=== PATIENT | female | born 1960 | race Caucasian/White ===

== ENCOUNTER → 2017-09-08 | Outpatient (CLI) | payer OTHER ==
[~2017-09-08] MED LIST: ATROPINE SULFATE 0.1 MG/ML 5ML SYR ONE; DOBUTamine HCL 12.5 MG/ML 20 ML VIAL ONE; METOPROLOL TARTRATE 1 MG/ML VIAL ONE
--- NOTE | 2017-09-08 16:16 | DOBUTAMINE ECHO ---
*NOTICE TO RECEIVING [employer] This information is strictly Confidential and protected under [place] law. [place] law prohibits you from making any further disclosure of this information unless further disclosure is expressly permitted by the written consent of the person to whom it pertains or is authorized by law. A general authorization for the release of medical or other information is not sufficient for this purpose. Hospital accepts no responsibility if the information is made available to any other person, INCLUDING THE PATIENT. Interpretation Summary * Name: ZURI RASHID Study Date: 09/08/2017 11:39 AM BP: 166/50 mmHg * Patient Location: [facility] HR: 72 * : 1960 (M/d/yyyy) Gender: Female Height: 63 in * Age: 56 yrs Ethnicity: [place] Weight: 112 lb * Ordering Physician: Lopez Cross * Referring Physician: Lopez Cross * Performed By: Shaista Cadena RDCS * * Reason For Study: Chest pain, hypertension * BSA: 1.5 m2 * -- Conclusions -- * Dobutamine Stress Echo: * 1. Negative Dobutamine stress echo for ischemia at 91 % MPHR. * 2. Borderline dobutamine ECG for ischemia at 91% MPHR; please see details below. * 3. Appropriate blood pressure response. * 4. No arrhythmia. * 5. No chest pain reported. * Echo: * 1. Normal left ventricular size and systolic function. EF 65-70%. No regional wall motion abnormalities. No left ventricular hypertrophy. No significant diastolic dysfunction. * 2. Mild mitral regurgitation. * 3. Normal estimated right ventricular systolic pressure; 24mmHg. Procedure Details * DOBUTAMINE ECHO, CPT#[id number] * ECHO DOPPLER, CPT #[id number] * ECHO COLOR FLOW, CPT #[id number] Left Ventricle * The left ventricle is normal in size. * There is normal left ventricular wall thickness. * Ejection Fraction = 65-70%. * Resting wall motion: Normal. Stress wall motion: Appropriate increase in Left ventricular systolic function and decrease in cavity size. No stress induced segmental wall motion abnormalities. * The left ventricular ejection fraction increases normally with stress. The left ventricular end-systolic cavity size reduces post-stress (normal response). The left ventricular wall motion with stress is normal. * No regional wall motion abnormalities noted. Right Ventricle * The right ventricle is normal in size and function. * The right ventricular systolic function is normal as assessed by tricuspid annular plane systolic excursion (TAPSE) (normal >1.5 cm). Atria * The left atrial size is normal. * Right atrial size is normal. * There is no evidence of atrial septal defect, but resolution does not allow assessment for a patent foramen ovale. Mitral Valve * The mitral valve leaflets appear normal. There is no evidence of stenosis, fluttering, or prolapse. * There is mild mitral regurgitation. Tricuspid Valve * The tricuspid valve is not well visualized, but is grossly normal. * There is no tricuspid stenosis. * There is mild tricuspid regurgitation. Aortic Valve * The aortic valve is trileaflet. * No hemodynamically significant valvular aortic stenosis. * No aortic regurgitation is present. Pulmonic Valve * The pulmonary valve is inadequately visualized, but the Doppler data is adequate for interpretation. * There is no significant pulmonary regurgitation. Great Vessels * The aortic root is normal size. * Aortic arch of normal dimension. * Normal pulmonary venous flow pattern. Pericardium * There is no pericardial effusion. Stress Parameters * NSR at 76 bpm. * Diffuse upsloping ST depression noted during dobutamine infusion 5 minutes into recovery, there was 0.5-[address] depression in leads II, III, and aVF. No arrhythmia. * The stress portion of this study was personally supervised by the undersigned interpreting physician. * Rest heart rate was '72' BPM. * Rest blood pressure was '166/50' * Maximum heart rate achieved was 148 bpm. * Maximum heart rate was 91 % of maximum age-predicted heart rate. * Maximum blood pressure was '185/38' * Maximum Dobutamine infusion rate was '50' mcg/kg/min. * A total of 0.25 mg of intravenous Atropine was used to supplement Dobutamine for heart rate response. * Dobutamine infusion was terminated due to achieving target heart rate * A total of 5 mg of IV Metoprolol was administered to reverse Dobutamine-induced tachycardia. * The patient did not exhibit any symptoms during drug infusion. MMode 2D Measurements and Calculations IVSd 0.81 cm LVIDd 3.7 cm LVIDs 2.3 cm LVPWd 0.90 cm IVS/LVPW 0.89 FS 38.3 % EDV(Teich) 59.8 ml ESV(Teich) 18.3 ml EF(Teich) 69.4 % EDV(cubed) 52.5 ml ESV(cubed) 12.3 ml EF(cubed) 76.5 % LV mass(C)d 91.9 grams LV mass(C)dI 60.8 grams/m\S\2 SV(Teich) 41.5 ml SI(Teich) 27.4 ml/m\S\2 SV(cubed) 40.1 ml SI(cubed) 26.6 ml/m\S\2 Ao root diam 2.6 cm Ao root area 5.3 cm\S\2 ACS 1.5 cm LA dimension 2.3 cm asc Aorta Diam 2.5 cm LA/Ao 0.88 LVOT diam 1.8 cm LVOT area 2.6 cm\S\2 LVAd ap4 18.8 cm\S\2 LVLd ap4 6.4 cm EDV(MOD-sp4) 45.1 ml EDV(sp4-el) 46.9 ml LVAs ap4 9.3 cm\S\2 LVLs ap4 5.4 cm ESV(MOD-sp4) 13.8 ml ESV(sp4-el) 13.6 ml EF(MOD-sp4) 69.4 % EF(sp4-el) 71.1 % LVAd ap2 20.0 cm\S\2 LVLd ap2 6.2 cm EDV(MOD-sp2) 54.3 ml EDV(sp2-el) 54.4 ml LVAs ap2 9.3 cm\S\2 LVLs ap2 4.8 cm ESV(MOD-sp2) 15.9 ml ESV(sp2-el) 15.4 ml EF(MOD-sp2) 70.7 % EF(sp2-el) 71.7 % LVLd %diff -2.60 % EDV(MOD-bp) 49.5 ml LVLs %diff -12.03 % ESV(MOD-bp) 15.7 ml EF(MOD-bp) 68.3 % SV(MOD-sp4) 31.3 ml SI(MOD-sp4) 20.7 ml/m\S\2 SV(MOD-sp2) 38.4 ml SI(MOD-sp2) 25.4 ml/m\S\2 SV(MOD-bp) 33.8 ml SI(MOD-bp) 22.4 ml/m\S\2 SV(sp4-el) 33.3 ml SI(sp4-el) 22.0 ml/m\S\2 SV(sp2-el) 39.0 ml SI(sp2-el) 25.8 ml/m\S\2 Doppler Measurements and Calculations MV E max jj 61.6 cm/sec MV A max jj 52.4 cm/sec MV E/A 1.2 MV dec time 0.21 sec Ao V2 max 122.2 cm/sec Ao max PG 6.0 mmHg Ao max PG (full) 2.4 mmHg LIANNA(V,A) 2.0 cm\S\2 LIANNA(V,D) 2.0 cm\S\2 LV V1 max PG 3.5 mmHg LV V1 max 94.1 cm/sec PA V2 max 69.8 cm/sec PA max PG 1.9 mmHg PA acc slope 392.6 cm/sec\S\2 PA acc time 0.14 sec TR max jj 226.9 cm/sec RVSP(TR) 23.6 mmHg RAP systole 3.0 mmHg PA pr(Accel) 15.6 mmHg
== END | disposition home or self-care (01) ==
LOC: C.CPL 11:15
PROVIDERS: ATTEND Internal Medicine Critical Care Medicine
DX: I10 Essential (primary) hypertension (principal); Z86.79 Personal history of other diseases of the circulatory system; E78.2 Mixed hyperlipidemia

== ENCOUNTER 2017-09-24 09:25 | Inpatient (IN) | payer OTHER ==
[2017-09-21 12:10] LABS: BASO % 0.2 %; BASO ABS # 0.02 K/uL (0-0.2); EOS % 1.6 %; EOS ABS # 0.15 K/uL (0-0.5); IG# 0.02 K/uL (0.00-0.02); LYMPH % 31.7 %; LYMPH ABS # 3.01 K/uL (1.2-3.4); MEAN CELL VOLUME 95.7 fL (80-100); MEAN CORPUSCULAR HEMOGLOBIN 31.9 pg (25-34); MEAN CORPUSCULAR HGB CONC 33.3 g/dl (32-36); MEAN PLATELET VOLUME 9.7 fL (7.4-10.4); MONO % 6.1 %; MONO ABS # 0.58 K/uL (0.11-0.59); NEUT % 60.2 %; NEUT ABS # 5.72 K/uL (1.4-6.5); PLATELET COUNT 328 K/uL (130-400); RED CELL DISTRIBUTION WIDTH CV 13.7 % (11.5-14.5); RED CELL DISTRIBUTION WIDTH SD 47.7 fL (36.4-46.3)
[2017-09-21 12:21] LABS: CREATININE 0.89 mg/dl (0.60-1.20); POTASSIUM 3.7 mmol/L (3.5-5.1)
[2017-09-24] VITALS (8 sets, daily range): BP systolic 114–152; BP diastolic 62–73; PULSE 61–70; TEMP 35.8–36.7; O2SAT 97–100; Ht 160 cm; Wt 51.4 kg
[~2017-09-24] VITALS: Ht 160 cm; Wt 51.4 kg
[~2017-09-24 09:25] MED LIST changes: +ALBINS/ INH; -ATROPINE SULFATE 0.1 MG/ML 5ML SYR ONE; -DOBUTamine HCL 12.5 MG/ML 20 ML VIAL ONE; +LACTATED RINGER'S 1000ML 1,000 ML IV SCH; -METOPROLOL TARTRATE 1 MG/ML VIAL ONE; +SPRIN/30 INH; +VNTHFA/IN INH
[2017-09-24] MEDS ORDERED: BUPIVACAINE LIPOSOME 1/3% 266 MG/20 ML VIAL INFIL ONE (11:37)
[2017-09-24] MEDS ORDERED: BUPIVACAINE 0.5 % 5 MG/1 ML MPF 30ML VIAL ONE (11:38)
[2017-09-24] MEDS ORDERED: SODIUM CHLORIDE 0.9% PF 50 ML VIAL ONE (11:38)
--- NOTE | 2017-09-24 11:41 | History & Physical Bridge Note ---
H&P Re-Evaluation Bridge Note: I have examined the patient, reviewed the History & Physical and in the interval since the performance of the History & Physical I have noted the following changes of clinical significance: No changes noted
[2017-09-24] MEDS ORDERED: MIDAZOLAM HCL 1 MG/ML 2ML VIAL ONE (11:47)
[2017-09-24] MEDS ORDERED: FENTANYL CITRATE INJ 50 MCG/1 ML 2 ML VIAL ONE (11:47)
[2017-09-24] MEDS ORDERED: KETOROLAC TROMETHAMINE 30 MG/ML VIAL IV. PRN (12:00)
[2017-09-24] MEDS ORDERED: HYDROmorphone INJ 2 MG/ML SYR/VIAL IV PRN (12:00)
[2017-09-24] MEDS ORDERED: ATROPINE SULFATE 0.1 MG/ML 5ML SYR IV PRN (12:00)
[2017-09-24] MEDS ORDERED: ONDANSETRON INJ 2 MG/ML 2 ML VIAL IV PRN ×2 (12:00→13:30)
[2017-09-24] MEDS ORDERED: PROPOFOL IV EMULSION 10 MG/ML 20 ML VIAL IV ONE (13:11)
[2017-09-24] MEDS ORDERED: NEOSTIGMINE METHYLSULFATE 5 MG/5 ML SYR ONE (13:11)
[2017-09-24] MEDS ORDERED: LARYING-O-JET KIT (LTA) ONE (13:11)
[2017-09-24] MEDS ORDERED: LIDOCAINE HCL 2% 2 ML VIAL (20MG/ML) ONE (13:11)
[2017-09-24] MEDS ORDERED: GLYCOPYRROLATE INJ 0.2 MG/ML VIAL ONE (13:11)
[2017-09-24] MEDS ORDERED: ONDANSETRON INJ 2 MG/ML 2 ML VIAL ONE (13:11)
[2017-09-24] MEDS ORDERED: ROCURONIUM BROMIDE 10 MG/ML 5 ML VIAL IV ONE (13:11)
[2017-09-24] MEDS ORDERED: CEFAZOLIN SOD 1 GM VIAL ONE (13:12)
[2017-09-24] MEDS ORDERED: EpHEDrine SULFATE 50MG/5ML SYR ONE (13:12)
--- NOTE | 2017-09-24 13:20 | [facility] Post Operative Brief Note ---
Immediate Operative Summary Operative Date Sep 24, 2017. Pre-Operative Diagnosis Multiple bilateral pulmonary nodules Post-Operative Diagnosis same as preop Procedure(s) Performed Right Video Assisted Thoracoscopy with Lung Biopsies Surgeon Dr. Osman Postdoctoral Fellow Surgeon(s) Spencer Mckenzie PA-c Estimated Blood Loss 10 cc Findings Consistent with Post-Op Diagnosis Specimens FS #1: right upper lobe apex - to lab at 1241 FS #2: right lower lobe - to lab at 1258 Anesthesia Type General
[2017-09-24] MEDS ORDERED: MoRPHine SULFATE 2 MG/ML CARP IV PRN (13:30)
[2017-09-24] MEDS ORDERED: ALBUTEROL 0.083% NEBU SOLN 3 ML VIAL INH PRN (13:30)
[2017-09-24] MEDS ORDERED: ALBUTEROL HFA 8 GM INHALER INH PRN (13:30)
--- NOTE | 2017-09-24 14:08 | DIAGNOSTIC IMAGING REPORT ---
CHEST ONE VIEW PORTABLE CLINICAL HISTORY: wedge resection COMPARISON STUDY: Outside CT scan performed April 2017 FINDINGS: The heart is normal in size. There is a right-sided chest tube. There is a right apical suture line. There is a right apical pneumothorax with a pleural separation of 25 mm. A surgical clip projects over the right medial clavicle. There is diffuse reticular reticulonodular shadowing. There are no pleural effusions. There is no lobar consolidation. There is subcutaneous emphysema on the right.[ IMPRESSION: 1. Postsurgical changes on the right. 25 mm right apical pneumothorax. 2. Diffuse bilateral reticulonodular shadowing, a finding likely corresponding to the multiple bilateral pulmonary nodules visualized the outside CT scan. Electronically signed by: Jasbir Amos M.D. 09/24/2017 2:06 PM Dictated Date/Time: 09/24/2017 2:04 PM
--- NOTE | 2017-09-24 14:46 | Anesthesiology Progress Note ---
Anesthesia Post Op Note Date & Time Sep 24, 2017 at 14:46 Vital Signs Pain Intensity: 2 Vital Signs Past 12 Hours Date Time Temp Pulse Resp B/P (MAP) Pulse Ox O2 Delivery O2 Flow Rate FiO2 09/24/17 14:30 58 17 154/65 99 Nasal Cannula 2 09/24/17 14:15 61 19 151/69 99 Nasal Cannula 2 09/24/17 14:05 36.5 64 18 134/64 99 Nasal Cannula 2 09/24/17 13:55 64 22 146/75 100 Oxymask 6 09/24/17 13:45 76 18 134/65 100 Oxymask 8 09/24/17 13:37 36.2 89 16 156/69 100 Oxymask 10 09/24/17 09:52 36.7 68 20 132/67 98 Room Air Notes Mental Status: alert / awake / arousable, participated in evaluation Pt Amnestic to Procedure: Yes Nausea / Vomiting: adequately controlled Pain: adequately controlled Airway Patency, RR, SpO2: stable & adequate BP & HR: stable & adequate Hydration State: stable & adequate Anesthetic Complications: no major complications apparent
[2017-09-24] MEDS: OXYCODONE HCL IR 5 MG TAB (IMMEDIATE RELEASE) PO PRN (15:56)
[2017-09-24] MEDS: METOCLOPRAMIDE HCL INJ 5 MG/ML 2 ML VIAL IV. SCH ×2 (15:58→21:26)
[2017-09-24] MEDS: KETOROLAC TROMETHAMINE 15 MG/ML VIAL IV. SCH (15:59)
[2017-09-24] MEDS: ACETAMINOPHEN IV 1,000 MG in EMPTY BAG 0 ML IV SCH (15:59)
--- NOTE | 2017-09-24 18:09 | OPERATIVE REPORT ---
DATE OF OPERATION: 09/24/2017 PREOPERATIVE DIAGNOSIS: Multiple pulmonary nodules. POSTOPERATIVE DIAGNOSIS: Same. PROCEDURE: Right thoracoscopy with wedge resection of right upper lobe and right lower lobe biopsies. SURGEON: Jef Osman MD. CONTRACT NEGOTIATION SPECIALIST: CHRISTELLE Ruiz, (MrJonny Mckenzie was present for the whole case and was the first assist, managed the camera. He also closed the skin incisions at the conclusion of the case). ANESTHESIA: General anesthesia with single lumen intubation. SPECIFICS OF PROCEDURE. This is a 56-year-old female who is an active smoker and has been smoking her entirely life. She is found to have multiple pulmonary nodules bilateral, a bit more so on the right than the left. She was sent to me for considerations for diagnostic biopsy. I felt that a wedge resection is going to be required. We elected to proceed with a thoracoscopic biopsy and on 09/24/2017, we brought the patient to operating room and did an uncomplicated wedge resection of right upper lobe and right lower lobe. The patient had a small adhesion close to her subclavian artery on the right side and when reinsufflated CO2 in the lung, this apparently evolved and there was a bleeding run off the subclavian artery. Care was taken to identify the phrenic nerve and just anterior to this was a small vessel and I clipped this twice with a Hemoclip and that stopped the bleeding. We did an Exparel block. She tolerated it well. DESCRIPTION OF PROCEDURE: The patient was brought to the operating room, laid in supine position. General anesthesia was induced and endotracheal intubation was performed with a single lumen tube. The patient was turned in the left lateral decubitus position, her right chest prepped and draped in usual sterile fashion. A 5 mm scope was placed about the fifth interspace anteriorly. This was anterior to latissimus dorsi muscle. Another 5 mm port was placed bit posteriorly, one interspace below the scapular tip. We then placed a 12 mm port in about the eighth interspace closer to the mid axillary line. There were really no adhesions except for the upper lobe. We insufflated CO2 and noted blood coming from the area of the subclavian upon evaluating there was a small branch that had been involved. I clipped this twice with a Hemoclip. I suctioned out the blood. I then grasped the apex of the right upper lobe and using Endo-PARKER stapler fired across several times to remove the bullae as well as appeared to be nodules. Frozen section of this was performed while I was doing a biopsy of the medial aspect of the lower lobe. This was a definite nodule. Dr. Randle saw bullae but did not really see any nodules in the upper lobe segment; however, in the lower lobe there was an inflammatory nodule which was definite. We have sent this for AFB and fungal smears. We then placed 266 mg of Exparel and mixed it with 30 mL of 0.5% bupivacaine and then 100 mL of normal saline injected from the 2nd to 11th rib for an intercostal block. I also injected in all the incisions. After I reviewed the slides with Dr. Randle and we felt that we had business office representative sample of the nodule, we closed by placing a chest tube in the mid axillary line lower thoracostomy port and directed towards the apex. A 4-0 Monocryl was used in running continuous fashion to close the two 5 mm ports and then 0 silk was used to hold the tube in place and sutured to the skin. We had no air leak. Monocryl was also used to close the skin incision around the chest tube. She tolerated it quite well and was extubated in the room. She was to be watched in the regular floor. I attest to the content of the Intraoperative Record and any orders documented therein. Any exception s are noted below.
[2017-09-24] MEDS: DOCUSATE SODIUM 100 MG CAP PO SCH (21:26)
[2017-09-24] MEDS: D5W AND 1/2NSS 1,000 ML IV SCH ×2 (21:44→23:20)
[2017-09-25] VITALS (7 sets, daily range): BP systolic 130–178; BP diastolic 74–83; PULSE 51–61; TEMP 36.3–36.7; O2SAT 93–100
[2017-09-25] MEDS: KETOROLAC TROMETHAMINE 15 MG/ML VIAL IV. SCH ×3 (00:30→15:50)
[2017-09-25] MEDS: ACETAMINOPHEN IV 1,000 MG in EMPTY BAG 0 ML IV SCH ×3 (00:31→16:04)
[2017-09-25] MEDS: METOCLOPRAMIDE HCL INJ 5 MG/ML 2 ML VIAL IV. SCH ×2 (05:37→13:29)
--- NOTE | 2017-09-25 07:16 | DIAGNOSTIC IMAGING REPORT ---
CHEST ONE VIEW PORTABLE CLINICAL HISTORY: 56 years-old Female presenting with wedge resection . TECHNIQUE: Portable upright AP view of the chest was obtained. COMPARISON: 09/24/2017. FINDINGS: Large bore right pleural drain positioned towards the right apex. A surgical clip projects over the right apex. A suture margin is evident at the right apex. Atherosclerosis of the aortic arch. Cardiac silhouette normal in size. Prominence of pulmonary vasculature. Prominent and heterogeneous lung markings. No focal opacity. Persistent right apical pneumothorax with a pleural separation measuring 3.7 cm, stable to slightly increased from prior when remeasured at a comparable level. Osseous structures normal. Subcutaneous emphysema along the right lateral chest wall related to the drain. IMPRESSION: 1. Stable to slightly increased right apical pneumothorax with postsurgical changes of the right apex. 2. Large bore right pleural drain remains in place. Electronically signed by: Marques Gallagher M.D. 09/25/2017 7:14 AM Dictated Date/Time: 09/25/2017 7:13 AM
[2017-09-25 07:29] LABS: PTT PATIENT 28.9 SECONDS (21.0-31.0)
[2017-09-25 07:49] LABS: CREATININE 0.71 mg/dl (0.60-1.20)
[2017-09-25 07:50] LABS: HEMATOCRIT 36.4 % (37-47); MEAN CELL VOLUME 95.5 fL (80-100); MEAN CORPUSCULAR HEMOGLOBIN 31.5 pg (25-34); MEAN PLATELET VOLUME 9.5 fL (7.4-10.4); PLATELET COUNT 288 K/uL (130-400); RED CELL DISTRIBUTION WIDTH CV 13.9 % (11.5-14.5); RED CELL DISTRIBUTION WIDTH SD 48.3 fL (36.4-46.3); WHITE BLOOD COUNT 7.74 K/uL (4.8-10.8)
[2017-09-25] MEDS: TIOTROPIUM BROMIDE 5 PUFF/90 MCG INH INH SCH (08:26)
[2017-09-25] MEDS: DOCUSATE SODIUM 100 MG CAP PO SCH ×2 (08:26→21:39)
[2017-09-25] MEDS: D5W AND 1/2NSS 1,000 ML IV SCH ×2 (08:37→18:50)
--- NOTE | 2017-09-25 12:26 | SURGERY PROGRESS NOTE ---
DATE: 09/25/2017 SUBJECTIVE: Ms. Arellano underwent a wedge resection biopsy yesterday via right thoracoscopy. She has a bit larger pneumothorax than I thought she have, although we did do an apical resection. Her x-ray otherwise looks good with no basilar component and no infiltrates or pleural effusions. I will watch her for 1 more day. Her pain control was very good. She is ambulating in the hallway. She is tolerating a house diet. Overall, I am quite happy with her. We will check a chest x-ray in the morning. If that looks good, then we will let her go home. LUC
[2017-09-25] MEDS: ENOXAPARIN 40 MG/0.4 ML SYR SQ SCH (13:28)
[2017-09-25] MEDS: OXYCODONE HCL IR 5 MG TAB (IMMEDIATE RELEASE) PO PRN (19:00)
[2017-09-26] MEDS: KETOROLAC TROMETHAMINE 15 MG/ML VIAL IV. SCH ×2 (00:03→08:31)
[2017-09-26] MEDS: ACETAMINOPHEN IV 1,000 MG in EMPTY BAG 0 ML IV SCH ×2 (00:04→08:31)
[2017-09-26 03:58] VITALS: BP 192/83; PULSE 68; TEMP 36.5; O2SAT 98
[2017-09-26] MEDS: OXYCODONE HCL IR 5 MG TAB (IMMEDIATE RELEASE) PO PRN (04:03)
[2017-09-26] MEDS: D5W AND 1/2NSS 1,000 ML IV SCH (05:02)
[2017-09-26 05:07] VITALS: BP 176/83
--- NOTE | 2017-09-26 07:32 | DIAGNOSTIC IMAGING REPORT ---
CHEST ONE VIEW PORTABLE CLINICAL HISTORY: pneumothorax tube position COMPARISON STUDY: 09/25/2017 FINDINGS: Improved right apical pneumothorax. Maximum pleural separation currently is 2.5 cm. Right-sided chest tube is unchanged in position. The lungs remain generally clear. Minimal atelectasis left base unchanged. IMPRESSION: Improved right apical pneumothorax with a maximum current pleural separation of 2.5 cm. The above report was generated using voice recognition software. It may contain grammatical, syntax or spelling errors. Electronically signed by: Kavon Tamayo M.D. 09/26/2017 7:30 AM Dictated Date/Time: 09/26/2017 7:29 AM
[2017-09-26 08:00] VITALS: BP 176/83; PULSE 68; TEMP 36.5; O2SAT 98
[2017-09-26 08:02] VITALS: BP 183/82; PULSE 69; TEMP 36.8; O2SAT 96
[2017-09-26] MEDS: TIOTROPIUM BROMIDE 5 PUFF/90 MCG INH INH SCH (08:31)
[2017-09-26] MEDS: ENOXAPARIN 40 MG/0.4 ML SYR SQ SCH (08:32)
[2017-09-26] MEDS: DOCUSATE SODIUM 100 MG CAP PO SCH (08:56)
--- NOTE | 2017-09-26 09:31 | Discharge Instructions ---
Discharge Instructions Date of Service Sep 26, 2017. Admission Reason for Admission: Multiple Lung Nodules Shown On Ct Discharge Discharge Diagnosis / Problem: Same Discharge Goals Goal(s): Learn about illness (Await pathology.) Activity Recommendations Activity Limitations: as noted below Lifting Limitations: gradually increase as tolerated Exercise/Sports Limitations: gradually increase as tolerated May Resume Sexual Activity: when tolerated Shower/Bathe: may shower/bathe in 3 days Driving or Machine Use: resume 3 days after discharge . Instructions / Follow-Up Instructions / Follow-Up Remove dressing on 09-29-17 and shower. My office will call you to set up appointment for next week with a chest xray. Current Hospital Diet Patient's current hospital diet: Regular Diet Discharge Diet Recommended Diet: Regular Diet Procedures Procedures Performed: Right Video Assisted Thoracoscopy with Lung Biopsies Pending Studies Studies pending at discharge: yes List of pending studies: Pathology Medical Emergencies . Who to Call and When: Medical Emergencies: If at any time you feel your situation is an emergency, please call 911 immediately. . Non-Emergent Contact Non-Emergency issues call your: Primary Care Provider Call Non-Emergent contact if: temperature is above 101.5, wound has increased drainage, wound has increased redness . "Provider Documentation" section prepared by Jef Osman. . VTE Core Measure Inpt VTE Proph given/why not?: Enoxaparin (Lovenox)SQ, SCD's
--- NOTE | 2017-09-26 09:41 | DIAGNOSTIC IMAGING REPORT ---
CHEST ONE VIEW PORTABLE CLINICAL HISTORY: chest tube removal pneumothorax COMPARISON STUDY: 09/26/2017 6:57 AM FINDINGS: Interval removal of the right-sided chest tube. Small residual right apical pneumothorax unchanged in the prior exam. Lungs otherwise are clear. Mild chronic interstitial prominence is noted. IMPRESSION: Interval removal of the right-sided chest tube. Small right apical pneumothorax unchanged from the prior study. The above report was generated using voice recognition software. It may contain grammatical, syntax or spelling errors. Electronically signed by: Kavon Tamayo M.D. 09/26/2017 9:40 AM Dictated Date/Time: 09/26/2017 9:37 AM
--- NOTE | 2017-09-26 14:57 | DISCHARGE SUMMARY ---
DISCHARGE DIAGNOSIS: Apparent inflammatory nodules, bilaterally. HOSPITAL COURSE: Sumaya Arellano is a 56-year-old with a long history of cigarette smoking who was found to have multiple bilateral pulmonary nodules. They were all fairly small, though none of them over a centimeter. After a long talk, we elected to proceed with a thoracoscopic biopsy. On 09/24/2017, the patient underwent uncomplicated right thoracoscopy with a wedge resection and biopsy. She was also found to have bullae and I removed the apical bulla as a lower lobe mass. Frozen section was reviewed with Dr. Randle at the time of surgery and it appears to be an inflammatory mass. The fungal and AFB stains were negative thus far. The patient tolerated it well and she had a small apical pneumothorax and I kept her chest tube in for an extra day. This was pulled up today on 09/26/2017. Her post tube removal chest x-ray, I felt looked very good. We will see her back in the office next week to go over her final pathology. She really was not having pain and her incisions were clean. She was told to take [id number] pain medications. Discharge instructions were given. I will see her back in the office next week. LUC
--- NOTE | 2017-09-28 11:21 | EDITING REQUIRED CODING QUERY ---
CODING QUERY To promote full compliance with coding requirements relating to patient care, provider participation is requested in all cases of airport maintenance laborer uncertainty. Please assist us with the question(s) below: Coding Question(s): Please clarify below, in your clinical opinion, regarding the apical pneumothorax. ( ) Apical Pneumothorax was a postoperative complication ( X ) Apical Pneumothorax was Not a postoperative complication Physician's Response(s): Thank you Rossy Ortega Principal Diagnosis: "_that condition established after study, to be chiefly responsible for occasioning the admission of the patient to the hospital for care." Co-Existing Principal Diagnosis: "_when two or more diagnoses equally meet the criteria for principal diagnosis as determined by the circumstances of admission, diagnostic work up, and/or therapy provided, and the Alphabetic Index, Tabular List, or another coding guideline does not provide sequencing direction, any one of the diagnoses may be sequenced first." "When the physician has documented what appears to be a current diagnosis in the body of the record, but has not included the diagnosis in the final diagnostic statement, the physician should be asked whether the diagnosis should be added." (Source Coding [facility] 2 QTR90. p3-4)
== END 2017-09-26 11:02 | disposition home or self-care (01) | DRG 167 ==
LOC: C.ACU 09:25 → C.MSN 13:24 → ENRESERV 14:22
PROVIDERS: ADMIT Surgery; ATTEND Surgery
PROC: 0W9930Z Drainage of Right Pleural Cavity with Drainage Device, Percutaneous Approach (ICD-10-PCS; principal; 2017-09-24 11:30)
PROC: 0BBC4ZX Excision of Right Upper Lung Lobe, Percutaneous Endoscopic Approach, Diagnostic (ICD-10-PCS; principal; 2017-09-24 11:30)
PROC: 0BBF4ZX Excision of Right Lower Lung Lobe, Percutaneous Endoscopic Approach, Diagnostic (ICD-10-PCS; principal; 2017-09-24 11:30)
PROC: 0W3C4ZZ Control Bleeding in Mediastinum, Percutaneous Endoscopic Approach (ICD-10-PCS; principal; 2017-09-24 11:30)
DX: R91.8 Other nonspecific abnormal finding of lung field (principal); J93.9 Pneumothorax, unspecified; J43.9 Emphysema, unspecified; F17.210 Nicotine dependence, cigarettes, uncomplicated; J44.9 Chronic obstructive pulmonary disease, unspecified; I10 Essential (primary) hypertension; Z87.01 Personal history of pneumonia (recurrent); Z82.49 Family history of ischemic heart disease and other diseases of the circulatory system; Z83.3 Family history of diabetes mellitus; Z81.8 Family history of other mental and behavioral disorders

== ENCOUNTER → 2017-10-05 | Outpatient (CLI) | payer OTHER ==
[~2017-10-05] MED LIST changes: -LACTATED RINGER'S 1000ML 1,000 ML IV SCH
--- NOTE | 2017-10-05 09:59 | DIAGNOSTIC IMAGING REPORT ---
CHEST 2 VIEWS ROUTINE CLINICAL HISTORY: Multiple lung nodules. COMPARISON STUDY: Chest CT April 28, 2017 and chest radiograph September 26, 2017. FINDINGS: A small right pneumothorax has decreased in size since exam of September 26, 2017. Superior pleural separation measures 1 cm. Postoperative findings within the right lung apex are noted. Innumerable pulmonary nodules are again noted. Cardiac size is normal. Mediastinal contours are normal. There is no evidence for pulmonary edema. There is no pleural effusion. IMPRESSION: 1. Interval decrease in size of a small right apical pneumothorax. 2. Redemonstration of pulmonary nodules. Electronically signed by: Gage Lal M.D. 10/05/2017 9:57 AM Dictated Date/Time: 10/05/2017 9:55 AM
== END | disposition home or self-care (01) ==
LOC: C.RAD1850 09:45
PROVIDERS: ATTEND Surgery
DX: R91.8 Other nonspecific abnormal finding of lung field (principal); Z98.890 Other specified postprocedural states; J93.9 Pneumothorax, unspecified

== ENCOUNTER → 2017-12-15 | Outpatient (CLI) | payer OTHER ==
--- NOTE | 2017-12-15 14:47 | DIAGNOSTIC IMAGING REPORT ---
PET/CT SKULL-THIGH CLINICAL HISTORY: 57 years-old Female presenting with PULMONARY NODULE. TECHNIQUE: PET/CT was performed from the skull base through the proximal thighs following the intravenous administration of 12.772 mCi of F18-FDG. Blood glucose level 90 mg/dL. The injection was performed at 8:20 AM and imaging began at 9:[address] was performed for attenuation correction purposes and anatomic localization. COMPARISON: Chest CT from 04/28/2017. CT DOSE (mGy.cm): The estimated cumulative dose is 1156.30. FINDINGS: Head and neck: No FDG-avid mass in the visualized portion of the head or neck. No FDG avid or enlarged lymph nodes in the neck. Chest: Normal thyroid and thoracic inlet. No FDG avid axillary, supraclavicular, or mediastinal lymphadenopathy. Evaluation of the gato on anatomic imaging limited without intravenous contrast. Atherosclerosis of the aorta. Normal heart size. Coronary artery and aortic valve calcification. No pericardial or pleural effusion. Multifocal solid and cavitary nodules throughout all 5 lobes. There may be minimal sparing of the lung bases. Suture margin noted at the right apex from recent wedge resection. Many of these nodules demonstrate FDG avidity (for example max SUV 1.82 versus uninvolved lung parenchyma max SUV 0.55). Background emphysematous changes evident. Abdomen and pelvis: Normal physiologic distribution of radiotracer in the gastrointestinal and genitourinary tracts. No FDG avid lymphadenopathy or mass lesion. Diverticulosis of the sigmoid colon with wall thickening likely indicating chronic diverticular disease. No pericolonic fat infiltration to suggest acute diverticulitis. Atherosclerosis of the normal caliber abdominal aorta. Musculoskeletal: No FDG-avid or destructive osseous lesion. IMPRESSION: 1. Multifocal mildly FDG avid pulmonary nodules, some of which demonstrate cavitary change. The exuberant number and distribution of nodules is somewhat atypical for pulmonary Langerhans cell histiocytosis though the findings could still be compatible with this diagnosis. No evidence of malignancy in the imaged body. 2. Postsurgical changes of the right apex. 3. Emphysema and smoking related lung injury. Electronically signed by: Marques Gallagher M.D. 12/15/2017 2:45 PM Dictated Date/Time: 12/15/2017 12:14 PM
== END | disposition home or self-care (01) ==
LOC: C.PET 08:09
PROVIDERS: ATTEND Internal Medicine Critical Care Medicine
DX: R91.1 Solitary pulmonary nodule (principal)

== ENCOUNTER → 2018-04-08 | Outpatient (CLI) | payer OTHER | END | disposition home or self-care (01) | LOC: C.PATHSPEC 11:53 | PROVIDERS: ATTEND Internal Medicine Critical Care Medicine | DX: J98.4 Other disorders of lung (principal) ==

== ENCOUNTER 2025-03-15 10:48 | Inpatient (IN) ==
--- NOTE | 2025-03-15 11:39 | XRay Report ---
XR chest 1V portable CLINICAL HISTORY: hypotension COMPARISON STUDY: 05/14/2020 FINDINGS: Heart size and pulmonary vasculature are normal. No consolidation or pleural effusion. No p neumothorax. IMPRESSION: No acute findings. ACT 112: Negative or not required by law. Electronically signed by: Ricco Pierson M.D. 03/15/2025 11:38 AM
[2025-03-15 12:00] LABS: Hematocrit (blood only) 34.7 % (37.0-47.0); Hemoglobin 11.9 g/dl (12.0-16.0); Immature Granulocytes # (auto) 0.09 K/uL (0.01-0.20); Immature Granulocytes % (auto) 0.6 %; Mean Corpuscular Hemoglobin 33.6 pg (25.0-34.0); Mean Corpuscular Volume 98.0 fL (80.0-100.0); Platelet Count 432 K/uL (130-400); RDW Standard Deviation 53.3 fL (36.4-46.3); Red Blood Count 3.54 M/uL (4.20-5.40); White Blood Count 15.91 K/ul (4.8-10.8)
[2025-03-15] MEDS: SODIUM CHLORIDE 0.9% 1,000 ML IV ONE (12:00)
[2025-03-15 12:17] LABS: Base Excess VBG -0.3 mEq/L; HCO3 VBG 26 mmol/L; Oxygen Saturation VBG < 60.0 %; PCO2 VBG 49 mmHg (38-50); PO2 VBG < 20 mmHg; pH VBG 7.33 (7.36-7.41)
--- NOTE | 2025-03-15 12:20 | Emergency Department Note ---
Impression & Plan Dehydration, SIVAKUMAR (acute kidney injury) ED Provider Note NAME: ZURI RASHID AGE: 64 SEX: F : 1960 ARRIVES VIA: Walk-In INFORMANT: Patient, ED PROVIDER(S): Ciro Bennett MD CHIEF COMPLAINT: Concern for dehydration HPI: This is a 64-year-old female sent for concern of dehydration. Patient had a stroke previously and has had decline in health progressively. Family states that she has stopped eating and drinking normally. They are concerned about sores on her foot and sacrum. Family notes patient appears dehydrated with dry mouth. Urinate only once or twice a day. She has not had any recent falls. She is essentially bedbound. She has had no fevers, chills, nausea or vomiting. No diarrhea. Family concerned about patient's status at home and requesting help with care. ROS: See above HPI for pertinent positives & negatives. A total of 10 systems reviewed and were otherwise negative. PAST MEDICAL HISTORY: See Below PAST SURGICAL HISTORY: See Below FAMILY HISTORY: See Below SOCIAL HISTORY: See Below HOME MEDICATIONS: See Below ALLERGIES: See Below VITALS: See Below PHYSICAL EXAMINATION: General: Thin, frail Head: Normocephalic and atraumatic Eyes: Normal inspection, extraocular muscles intact Ear, nose, throat: Normal external exam Neck: Normal range of motion Respiratory: lungs clear to auscultation bilaterally Cardiovascular: Regular rate/rhythm, no murmur GI: soft, nontender, no guarding or rebound Extremities: nontender, moves all extremities Neuro: Awake, follows commands, chronic right sided weakness Skin: Warm, dry, and intact MEDICAL DECISION MAKING: This is a 64-year-old female presenting for dehydration. Patient suffered a stroke previously in July with right-sided deficits. Since then has had slow decline. - Patient initially hypotensive into the 60s over 40s - Patient had on fluids and improvement to 100s over 60s after half a liter - Blood work is reviewed showing leukocytosis to 15.91, hemoglobin 11.9. VBG 7.33/49. Signs of dehydration with minimal hyponatremia, hypochloremia. Creatinine elevated at 1.68. Troponin stable at 23 - Based on patient's clinical history and lab work, will admit for dehydration, failure to thrive in need of placement/SNF Differential diagnosis: Failure to thrive, dehydration, sepsis, UTI Independent History obtained from: [id number], son, Diagnostics interpreted by me: ECG: ECG independently interpreted by me with normal sinus rhythm, rate of 96, normal OR, normal QRS, normal QTc, no ST segment elevations consistent with STEMI criteria, significant artifact Cardiac Monitoring: An order was placed for continuous cardiac monitoring. The monitor shows a rate of 96 with sinus rhythm. 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 (Acute) COPD, mild (Acute) Current tobacco use (Acute) Depressive disorder (Acute) Dyspnea on exertion (Acute) Essential hypertension (Acute) History of unstable angina (Acute) Lung nodule (Acute) Mixed hyperlipidemia (Acute) Multiple lung nodules on CT (Acute) Tobacco use disorder Chronic obstructive pulmonary disease Adult PLCH (pulmonary Langerhans cell histiocytosis) Lung nodules Social History Smoking Status: Current every day smoker Tobacco Type: Cigarettes Age Started Using Tobacco: 12; packs per day: 1; Cigarettes Per Day: 20; Second Hand Exposure: Yes; Feels Safe at Home: Yes Allergies Allergies Allergy/AdvReac Type Severity Reaction Status Date / Time No Known Allergies Allergy Unverified 03/30/24 14:36 Home Meds Home Medications Medication Instructions Recorded Confirmed atorvastatin 20 mg tablet 80 mg PO DAILY 11/16/22 03/15/25 lorazepam 1 mg tablet 1 mg PO BID PRN Other 03/30/24 03/15/25 aspirin 81 mg tablet,delayed 81 mg PO DAILY 03/15/25 03/15/25 release chlorthalidone 25 mg tablet 12.5 mg PO DAILY 03/15/25 03/15/25 ezetimibe 10 mg tablet 10 mg PO DAILY 03/15/25 03/15/25 furosemide 20 mg tablet 20 mg PO DAILY PRN Fluid Retention 03/15/25 03/15/25 lisinopril 20 mg tablet 20 mg PO DAILY 03/15/25 03/15/25 multivitamin 1 tab PO DAILY 03/15/25 03/15/25 oxycodone-acetaminophen 7.5 mg-325 1 tab PO Q8H 03/15/25 03/15/25 mg tablet sertraline 25 mg tablet 25 mg PO DAILY 03/15/25 03/15/25 silver sulfadiazine 1 % topical 1 applic topical BID PRN Other 03/15/25 03/15/25 cream umeclidinium 62.5 mcg/actuation 1 inh inhalation DAILY PRN Other 03/15/25 03/15/25 blister powder for inhalation (Incruse Ellipta) Previous Rx's Medication Instructions Recorded albuterol sulfate 90 mcg/actuation 2 puff inhalation QID PRN 07/04/21 aerosol inhaler shortness of breath or wheezing #18 grams Results & Data (ED) Vital Signs Vital Signs - 24 hr 03/15/25 11:16 03/15/25 11:24 03/15/25 11:36 Temperature 36.8 C Temperature Source Oral Pulse Rate 93 H 89 Pulse Rate [Apical] 91 H Pulse Rate from SpO2 Sensor 90 Respiratory Rate 24 16 16 Respiratory Effort / Characteristics Non-Labored Spontaneous Non-Labored Spontaneous Respiratory Depth Normal Normal Blood Pressure 64/45 L 81/45 L Blood Pressure [Left Arm] 103/65 Blood Pressure Mean 51 57 Blood Pressure Mean [Left Arm] 77 Pulse Oximetry 91 91 89 L Oxygen Delivery Method Room Air Room Air Oxygen Flow Rate Sepsis Recent Fever Within 48 Hours No Sepsis New/Unexplained Change in Mental Status No Sepsis Action Taken by Nursing Physician Notified Oxygen Flow Rate - Titration Pulse Oximetry Post Tiitration 03/15/25 11:39 03/15/25 11:39 03/15/25 11:45 Temperature Temperature Source Pulse Rate 83 Pulse Rate [Apical] Pulse Rate from SpO2 Sensor 82 Respiratory Rate 16 Respiratory Effort / Characteristics Respiratory Depth Blood Pressure 85/62 L 85/62 L Blood Pressure [Left Arm] Blood Pressure Mean 69 63 Blood Pressure Mean [Left Arm] Pulse Oximetry 88 L 93 Oxygen Delivery Method Room Air Nasal Cannula Nasal Cannula Oxygen Flow Rate 2 2 Sepsis Recent Fever Within 48 Hours Sepsis New/Unexplained Change in Mental Status Sepsis Action Taken by Nursing Oxygen Flow Rate - Titration 2 Pulse Oximetry Post Tiitration 94 03/15/25 11:46 03/15/25 11:54 03/15/25 12:03 Temperature Temperature Source Pulse Rate 96 H 82 86 Pulse Rate [Apical] Pulse Rate from SpO2 Sensor 83 Respiratory Rate 13 15 Respiratory Effort / Characteristics Respiratory Depth Blood Pressure 108/57 L 126/76 Blood Pressure [Left Arm] Blood Pressure Mean 74 92 Blood Pressure Mean [Left Arm] Pulse Oximetry 95 Oxygen Delivery Method Nasal Cannula Nasal Cannula Oxygen Flow Rate 2 2 Sepsis Recent Fever Within 48 Hours Sepsis New/Unexplained Change in Mental Status Sepsis Action Taken by Nursing Oxygen Flow Rate - Titration Pulse Oximetry Post Tiitration 03/15/25 12:30 Temperature Temperature Source Pulse Rate 96 H Pulse Rate [Apical] Pulse Rate from SpO2 Sensor 85 Respiratory Rate 15 Respiratory Effort / Characteristics Respiratory Depth Blood Pressure 109/41 L Blood Pressure [Left Arm] Blood Pressure Mean 63 Blood Pressure Mean [Left Arm] Pulse Oximetry 99 Oxygen Delivery Method Nasal Cannula Oxygen Flow Rate 2 Sepsis Recent Fever Within 48 Hours Sepsis New/Unexplained Change in Mental Status Sepsis Action Taken by Nursing Oxygen Flow Rate - Titration Pulse Oximetry Post Tiitration Laboratory Data 03/15/25 11:38 03/15/25 11:38 Lab Results 03/15/25 03/15/25 03/15/25 Range/Units 11:38 11:48 14:27 WBC 15.91 H (4.8-10.8) K/ul RBC 3.54 L (4.20-5.40) M/uL Hgb 11.9 L (12.0-16.0) g/dl POC Hgb 12.6 (12.0-16.0) g/dl Hct 34.7 L (37.0-47.0) % POC Hct 37 (37-47) % MCV 98.0 (80.0-100.0) fL MCH 33.6 (25.0-34.0) pg MCHC 34.3 (32.0-36.0) g/dL RDW Std Deviation 53.3 H (36.4-46.3) fL RDW Coeff of Shanice 14.8 H (11.5-14.5) % Plt Count 432 H (130-400) K/uL MPV 9.7 (9.4-12.4) fL Immature Gran % (Auto) 0.6 % Neut % (Auto) 75.1 % Lymph % (Auto) 16.0 % [place] % (Auto) 6.1 % Eos % (Auto) 1.9 % Baso % (Auto) 0.3 % Neut # (Auto) 11.96 H (1.40-6.50) K/uL Lymph # (Auto) 2.55 (1.20-3.40) K/uL [place] # (Auto) 0.97 H (0.11-0.59) K/uL Eos # (Auto) 0.30 (0.00-0.50) K/uL Baso # (Auto) 0.04 (0.00-0.20) K/uL Immature Gran # (Auto) 0.09 (0.01-0.20) K/uL VBG pH 7.33 L (7.36-7.41) VBG pCO2 49 (38-50) mmHg VBG pO2 < 20 mmHg VBG HCO3 26 mmol/L VBG O2 Saturation < 60.0 % VBG Base Excess -0.3 mEq/L POC Sodium 133 L (135-144) mmol/L Sodium 134 L (136-145) mmol/L POC Potassium 4.5 (3.3-5.0) mmol/L Potassium 4.5 (3.5-5.1) mmol/L POC Chloride 99 L (101-112) mmol/L Chloride 96 L (98-107) mmol/L Carbon Dioxide 26 (21-32) mmol/L POC Total CO2 26 (24-31) mmol/L Anion Gap 12 H (3-11) POC Anion Gap 14.0 L (16-25) mmol/L POC BUN 56 H (7-18) mg/dl BUN 65 H (6-23) mg/dl Creatinine 1.68 H (0.6-1.2) mg/dl POC Creatinine 1.9 H (0.6-1.3) mg/dl Est Cr Clr Drug Dosing 20.5 ml/min eGFR 33.34 BUN/Creatinine Ratio 38.7 H (10-20) Glucose 130 H (70-99(Fasting)) mg/dl POC Glucose (other) 127 H (70-99) mg/dl Calcium 10.5 H (8.6-10.3) mg/dl POC Ioniz Calcium Kristyn 1.24 (1.12-1.32) mmol/l Total Bilirubin 0.4 (0.2-1.0) mg/dl Direct Bilirubin 0.1 (0-0.2) mg/dl AST 20 (13-39) U/L ALT 13 (7-52) U/L Alkaline Phosphatase 98 (34-104) U/L Troponin I High Sens 23.7 H 23.3 H (0-14) pg/ml Total Protein 7.6 (6.0-8.3) gm/dl Albumin 4.1 (3.4-5.0) gm/dl Lipase 37 (11-82) U/L Administered Medications Discontinued Medications Sodium Chloride (Nss) 1,000 mls @ 999 mls/hr IV .Q1H1M ONE Stop: 03/15/25 12:24 Last Admin: 03/15/25 12:00 Dose: 999 mls/hr Documented By: ARS Imaging Data Radiologist's Impression: Chest X-Ray 03/15/25 11:24 XR chest 1V portable CLINICAL HISTORY: hypotension COMPARISON STUDY: 05/14/2020 FINDINGS: Heart size and pulmonary vasculature are normal. No consolidation or pleural effusion. No pneumothorax. IMPRESSION: No acute findings. ACT 112: Negative or not required by law. Electronically signed by: Ricco Pierson M.D. 03/15/2025 11:38 AM Discharge Plan Visit Data Chief Complaint: Dehydration Stated Complaint: DECLINE IN CONDITION, DEHYDRATION, WEAKNESS ED Provider: Ciro Bennett Discharge Problem: Dehydration, SIVAKUMAR (acute kidney injury) Patient Disposition: Admitted As Inpatient Condition: Fair Prescriptions Prescriptions: No Action albuterol sulfate 90 mcg/actuation HFA aerosol inhaler 2 puff INH QID PRN (Reason: shortness of breath or wheezing) Qty: 18 3RF atorvastatin 20 mg tablet 80 mg PO DAILY lorazepam 1 mg tablet 1 mg PO BID PRN (Reason: Other) silver sulfadiazine 1 % cream 1 applic TOPICAL BID PRN (Reason: Other) lisinopril 20 mg tablet 20 mg PO DAILY chlorthalidone 25 mg tablet 12.5 mg PO DAILY sertraline 25 mg tablet 25 mg PO DAILY furosemide 20 mg tablet 20 mg PO DAILY PRN (Reason: Fluid Retention) oxycodone-acetaminophen 7.5-325 mg tablet 1 tab PO Q8H ezetimibe 10 mg tablet 10 mg PO DAILY multivitamin [Multi-Vitamins] Tablet 1 tab PO DAILY aspirin [Aspir-81] 81 mg Tablet,Delayed Release (Dr/Ec) 81 mg PO DAILY Incruse Ellipta 62.5 mcg/actuation blister with device 1 inh inhalation DAILY PRN (Reason: Other) Referrals Referrals: Sonny Marin, [Primary Care Provider] -
[2025-03-15 12:21] LABS: Alanine Aminotransferase 13.0 U/L (7-52); Alkaline Phosphatase 98.0 U/L (34-104); Anion Gap 12.0 (3-11); Bilirubin,Total 0.4 mg/dl (0.2-1.0); Blood Urea Nitrogen 65.0 mg/dl (6-23); Calcium 10.5 mg/dl (8.6-10.3); Carbon Dioxide 26.0 mmol/L (21-32); Chloride 96.0 mmol/L (98-107); Creatinine Clr Calc Pharmacy 20.5 ml/min; Glucose 130.0 mg/dl (70-99(Fasting)); Lipase 37.0 U/L (11-82); Potassium 4.5 mmol/L (3.5-5.1); Sodium 134.0 mmol/L (136-145); Total Protein 7.6 gm/dl (6.0-8.3)
[2025-03-15] MEDS: SODIUM CHLORIDE 0.9% 1,000 ML IV SCH (15:54)
[2025-03-15 16:24] LABS: Appearance Urine Cloudy (Clear); Bacteria Urine Automated 1+ (None Seen); Glucose Urine UA Negative (Negative); RBC Urine Automated 0-2 /hpf (0-2); WBC Urine Automated >50 /hpf (0-5)
--- NOTE | 2025-03-15 18:51 | History & Physical Report ---
Date of Service March 15, 2025 Assessment & Plan (1) Failure to thrive in adult: Plan: As above in the HPI. (2) Acute dehydration: Plan: As above in the HPI. (3) Acute hyponatremia: Plan: As above in the HPI. (4) UTI (urinary tract infection): Plan: As above in the HPI. (5) Demand ischemia: Plan: As above in the HPI. (6) Current tobacco use: Plan: As above in the HPI. Admission and Anticipated Discharge Date Admission Date: March 15, 2025 History of Present Illness Chief Complaint: "I'm weak. I don't feel like eating or drinking for the past 3 weeks. I don't feel hungry. If I take a few bites, I am full and don't want to eat or drink anymore. I am so weak that I cannot even sit up, stand up, or walk at home. I've lost a lot of weight, but I can't say how much." Primary Care Provider: Sonny Marin DO 64 years old right-hand dominant female with PMH of FULL CODE @ home, severe protein calorie malnutrition with BMI 15.4 (height 160.2 cm; weight 39.5 kg), ongoing tobacco abuse with subsequent diagnosis of (a) COPD, not on home O2 or home steroids, (b) left-sided lung carcinoma (e.g., histiocytosis) under watchful waiting as per PUL[facility] Dr. 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 I don't feel like eating or drinking for the past 3 weeks. I don't feel hungry. If I take a few bites, I am full and don't want to eat or drink anymore. I am so weak that I cannot even sit up, stand up, or walk at home. I've lost a lot of weight, but I can't say how much." Patient denies antecedent/coincident fevers, chills, diaphoresis, cough, wheeze, sore throat, hemoptysis, chest pains, palpitations, pleurisy, nausea, vomiting, diarrhea, abdominal pain, pelvic pain, hematemesis, hematochezia, melena, hematuria, dysuria, frequency, urgency, headaches, dizziness, lightheadedness, visual changes, hearing changes, falls, syncope, trauma, travel history, sick contacts, or food/drug ingestions novel or new. All other review of systems are reported as negative by the patient on 03/15/2025. In [facility] ER bed #C05, patient was afebrile @ 36.6 degrees Celsius, HR 84, RR 15, O2 sat 100% on 2 liters/minute O2 via nasal cannula, and BP 102/67 (03/15/2025, 5:24pm). Exam was noted for right arm paralysis and right leg paresis. Patient appeared run-down, worn-out, and listless. 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 Skin was dry with skin tenting, but no delay in capillary refill time > 2 seconds. Labs in [facility] ER bed #C05 included: WBC 15.91, N75 L16 M6 E2, Hb 11.9, MCV 98.0, MCHC 34.3, platelet 432 (03/15/2025, 11:38am). VBG 7.33, pCO2 49, pO2 < 20, HCO3 26, O2 sat < 60% (03/15/2025, 11:38am). Na 134, K 4.5, BUN 65, creatinine 1.68, GFR 33.3, glucose 130, Ca 10.5, albumin 4.1, total protein 7.6 (03/15/2025, 11:38am). Troponin-I #1 23.7 pg/mL (03/15/2025, 2:27pm). Troponin-I #2 23.3 pg/mL (03/15/2025, 11:38am). U/A: cloudy yellow, LE 3+, nitrite-, WBC > 50, RBC 0-2, epithelial cells 6-10, bacteria 1+ (03/15/2025). Urine culture (03/15/2025). Additional testing in [facility] ER bed #C05 included: Portable CXR (03/15/2025, 11:24am): No infiltrate, effusion, cardiomegaly, pulmonary vascular congestion, or pneumothorax (by my review). EKG (03/15/2025, 11:28am): NSR @ 96, MI 156, QTC 424, no acute ST depressions/elevations (by my review). Patient was subsequently admitted to the inpatient hospitalist service @ [facility] on 03/15/2025 with the following diagnoses: 1. Failure to thrive. 2. Acute dehydration with BUN:creatinine ratio > 20:1 (e.g., BUN 65, creatinine 1.68 on 03/15/2025, 11:38am). 3. Acute hyponatremia with admission Na 134 mmol/L (03/15/2025, 11:38am). 4. Acute UTI. 5. Acute type II NSTEMI with Troponin-I #1 23.7 pg/mL (03/15/2025, 2:27pm) and Troponin-I #2 23.3 pg/mL (03/15/2025, 11:38am). 6. Ongoing tobacco abuse with subsequent diagnosis of (a) COPD, not on home O2 or home steroids, (b) left-sided lung carcinoma (e.g., histiocytosis) under watchful waiting as per PUL[facility] Dr. Daly Govea. To address #1, patient awaits formal Folder Stitcher Operator Service evaluation in the 03/16/2025 am. In the interim, patient has been started on a heart healthy diet. To address #2, patient received 1 liter of 0.9% NS @ 999 mL/hr (03/15/2025, 12:00pm), followed by 1 liter of 0.9% NS @ 80 mL/hr (03/15/2025, 3:54pm), based on a delivery rate of 2 mL of 0.9% NS per kg of body weight per hour, and a body weight of 39.5 kg. I will check BUN:creatinine ratio in the 03/16/2025 am. To address #3, patient received 1 liter of 0.9% NS @ 999 mL/hr (03/15/2025, 12:00pm), followed by 1 liter of 0.9% NS @ 80 mL/hr (03/15/2025, 3:54pm), based on a delivery rate of 2 mL of 0.9% NS per kg of body weight per hour, and a body weight of 39.5 kg. I will check Na level in the 03/16/2025 am. To address #4, patient was started on ceftriaxone 1g IV daily (day #1/3 on 03/15/2025, 6:45pm). I will check vitals, genito-urinary exam (no sherman catheter in [facility] ER bed #C05), WBC w/diff, and urine culture (03/15/2025) in the 03/16/2025 am. To address #5, patient was observed OFF telemetry as I surmise that demand ischemia in the setting of acute dehydration, due to possible acute UTI, is the culprit for the nominal troponin-I elevation(s). To address #6, patient received smoking cessation counselling 16 minutes in [facility] ER bed #C05. Patient agrees to quit smoking tobacco while in [facility]. Patient accepts offer of nicotine replacement utilizing nicotine patch, stating, "I can quit smoking myself." Allergies Allergy/AdvReac Type Severity Reaction Status Date / Time No Known Allergies Allergy Unverified 03/30/24 14:36 Home Medications Medication Instructions Recorded Confirmed Type albuterol sulfate 90 mcg/actuation 2 puff inhalation QID PRN 07/04/21 03/15/25 Rx aerosol inhaler shortness of breath or wheezing #18 grams atorvastatin 20 mg tablet 80 mg PO DAILY 11/16/22 03/15/25 History lorazepam 1 mg tablet 1 mg PO BID PRN Other 03/30/24 03/15/25 History aspirin 81 mg tablet,delayed 81 mg PO DAILY 03/15/25 03/15/25 History release chlorthalidone 25 mg tablet 12.5 mg PO DAILY 03/15/25 03/15/25 History ezetimibe 10 mg tablet 10 mg PO DAILY 03/15/25 03/15/25 History furosemide 20 mg tablet 20 mg PO DAILY PRN Fluid Retention 03/15/25 03/15/25 History lisinopril 20 mg tablet 20 mg PO DAILY 03/15/25 03/15/25 History multivitamin 1 tab PO DAILY 03/15/25 03/15/25 History oxycodone-acetaminophen 7.5 mg-325 1 tab PO Q8H 03/15/25 03/15/25 History mg tablet sertraline 25 mg tablet 25 mg PO DAILY 03/15/25 03/15/25 History silver sulfadiazine 1 % topical 1 applic topical BID PRN Other 03/15/25 03/15/25 History cream umeclidinium 62.5 mcg/actuation 1 inh inhalation DAILY PRN Other 03/15/25 03/15/25 History blister powder for inhalation (Incruse Ellipta) Past Med/Surg History Problem List (Updated 03/15/25 @ 18:51 by Chris Parra MD, PhD) Acute hyponatremia Demand ischemia UTI (urinary tract infection) Acute dehydration Failure to thrive in adult SIVAKUMAR (acute kidney injury) (Acute) Dehydration (Acute) 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 No problems noted. Mother , at 83 years of age from natural causes. No problems noted. Social History (Updated 03/15/25 @ 18:49 by Chris Parra MD, PhD) Smoking Status: Current every day smoker Tobacco Type: Cigarettes Age Started Using Tobacco: 12; packs per day: 1; Cigarettes Per Day: 1/2 pack per day; Second Hand Exposure: Yes; Hx Alcohol Use: No (Unknown pt confused) Hx Substance Use: No (Unknown pt confused) Preferred Language: [place] [employer] Consultant Required: No marital status: marital status details: 2 sons (44y, alive/well; 22y, from suicide) Current Living Situation Comment: Unknown pt confused Feels Safe at Home: Yes Review of Systems Constitutional: As above in the HPI. Physical Exam Constitutional: General appearance: Run-down, worn-out, and listless. Cachexia and sarcopenia noted with bitemporal atrophy and decreased finger automatic punch press operator strength in left hand. Comfortable, coherent, cooperative. Wide awake and alert. Not confused, lethargic, or obtunded. Speaks in complete, fluent, and articulate sentences without pause, interruption, cough, or wheeze. HEENT: Normocephalic; atraumatic. EOMI. PERRL No rhinorrhea. No pharyngeal discharge. Neck: Supple, no stridor, bruit, goiter, JVD, or HJR. Lymph: No lymphadenopathy. Chest: Symmetric rise and fall with respirations. Non-tender to palpation. Lungs: Clear to auscultation and percussion. No audible wheeze, pectoriloquy, increase in tactile fremitus, or flatness/dullness to percussion at the bases. Heart: RRR, S1S2, no S3 or S4. Grade II/ early systolic murmur @ LLSB without radiation to the carotids, axilla, or back, and which remains invariant in regards to the respiratory cycle. Abd: Soft, non-tender, non-distended. No rebound, guarding, Carey's sign, or organomegaly. Bowel sounds auscultated in all 4 quadrants. Ext: No clubbing, cyanosis, or edema. 2+ pedal pulses bilaterally. Skin: No decubitus ulcer, exanthem, or enanthem. Skin dry with skin tenting, but no delay in capillary refill time > 2 seconds. Neuro: Alert and oriented in regards to person, place, time, or situation. Right arm paralysis and right leg paresis. LUE/LLE, 5/5 motor strength, proximally and distally. Urology: No sherman catheter. No urethral discharge. Psych: No suicidal ideation. No homicidal ideation. Results & Data Results & Data Vital Signs (Past 12 Hours) Vital Signs Temp Pulse Pulse Pulse Resp BP BP 03/15/25 17:24 03/15/25 17:17 36.6 C 84 15 102/67 03/15/25 17:00 99 H 16 113/68 03/15/25 16:30 99 H 16 03/15/25 16:30 111/85 03/15/25 16:30 111/85 03/15/25 15:48 108 H 20 109/67 03/15/25 15:21 102 H 16 03/15/25 14:36 118 H 19 03/15/25 14:27 97 H 16 128/72 03/15/25 14:06 104 H 17 03/15/25 13:57 98 H 22 140/73 03/15/25 13:45 102 H 17 132/73 03/15/25 13:33 91 H 18 03/15/25 13:12 86 15 101/48 L 03/15/25 12:42 85 20 03/15/25 12:30 96 H 15 109/41 L 03/15/25 12:03 86 15 126/76 03/15/25 11:54 82 13 108/57 L 03/15/25 11:46 96 H 03/15/25 11:45 85/62 L 03/15/25 11:39 83 16 85/62 L 03/15/25 11:39 03/15/25 11:36 89 16 81/45 L 03/15/25 11:24 91 H 16 103/65 03/15/25 11:16 36.8 C 93 H 24 64/45 L Pulse Ox O2 Del Method O2 Flow Rate 03/15/25 17:24 Nasal Cannula 2 03/15/25 17:17 100 Nasal Cannula 2 03/15/25 17:00 96 2 03/15/25 16:30 96 03/15/25 16:30 03/15/25 16:30 03/15/25 15:48 97 03/15/25 15:21 98 03/15/25 14:36 100 03/15/25 14:27 99 03/15/25 14:06 95 03/15/25 13:57 98 03/15/25 13:45 95 03/15/25 13:33 95 03/15/25 13:12 84 L 03/15/25 12:42 99 03/15/25 12:30 99 Nasal Cannula 2 03/15/25 12:03 95 Nasal Cannula 2 03/15/25 11:54 Nasal Cannula 2 03/15/25 11:46 03/15/25 11:45 Nasal Cannula 2 03/15/25 11:39 93 Nasal Cannula 2 03/15/25 11:39 88 L Room Air 03/15/25 11:36 89 L 03/15/25 11:24 91 Room Air 03/15/25 11:16 91 Room Air Laboratory Results As above in the HPI. Diagnostic Findings As above in the HPI. Medications Administered As above in the HPI. Code Status & VTE Plan VTE Prophylaxis Plan VTE Prophylaxis will be ordered: Yes PG Care Time/CCT Total # of Minutes Spent Total Time Spent with Patient: Total time spent is greater than 50% in coordination of care (as documented) at patient's floor/unit and/or counseling patient: Coding Level of Care Code 61816 INT INP/OBS CARE 3/75MIN Diagnoses Failure to thrive in adult R62.7 Acute dehydration E86.0 Acute hyponatremia E87.1 UTI (urinary tract infection) N39.0 Demand ischemia I24.89 Current tobacco use Z72.0
[2025-03-15] MEDS: cefTRIAXone SODIUM 1,000 MG/50 ML BAG IV SCH (19:43)
[2025-03-15] MEDS: HEPARIN SOD 5,000 UNIT/0.5 ML VIAL SQ SCH (23:08)
[2025-03-16 06:57] LABS: Hematocrit (blood only) 28.7 % (37.0-47.0); Hemoglobin 9.6 g/dl (12.0-16.0); Immature Granulocytes # (auto) 0.10 K/uL (0.01-0.20); Immature Granulocytes % (auto) 0.6 %; Mean Corpuscular Hemoglobin 33.2 pg (25.0-34.0); Mean Corpuscular Volume 99.3 fL (80.0-100.0); Platelet Count 325 K/uL (130-400); RDW Standard Deviation 53.1 fL (36.4-46.3); Red Blood Count 2.89 M/uL (4.20-5.40); White Blood Count 15.61 K/ul (4.8-10.8)
[2025-03-16 07:18] LABS: Anion Gap 8.0 (3-11); Blood Urea Nitrogen 35.0 mg/dl (6-23); Calcium 8.6 mg/dl (8.6-10.3); Carbon Dioxide 24.0 mmol/L (21-32); Chloride 108.0 mmol/L (98-107); Creatinine Clr Calc Pharmacy 44.2 ml/min; Glucose 91.0 mg/dl (70-99(Fasting)); Potassium 4.1 mmol/L (3.5-5.1); Sodium 140.0 mmol/L (136-145)
[2025-03-16] MEDS: SERTRALINE HCL 50 MG TABLET PO SCH (07:35)
[2025-03-16] MEDS: ASPIRIN 81 MG ECTAB PO SCH (07:35)
--- NOTE | 2025-03-16 09:22 | Hospitalist Progress Note ---
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 histiocytosis), depression, anxiety, hypertension, severe protein calorie malnutrition. Family reports she has had a progressive decline since her stroke and has been essentially bedbound with very limited oral intake. She presented with acute dehydration, SIVAKUMAR, generalized weakness, and acute UTI. #Failure to thrive in adult | Severe protein calorie malnutrition | Dehydration - elevated BUN/Cr at 65/1.68 consistent with dehydration on admission. S/p 2 L IV fluid with improvement to 35/0.78 - Unclear precipitating event behind this failure to thrive, as she initially was doing well after her stroke for 6 months, then for the past 1 month has had a significant progressive decline. DDx major depression, vascular dementia, among other etiologies - Estimated ~34 lb weight loss since 03/2024 - RD consulted for nutritional assessment, appreciate recommendations/adjustments to plan - PT/OT recommending SNF and 08/03 care, noting care [employer] not sufficient for level of need required - Continue maintenance IV fluids until euvolemic, still appearing clinically dry - Palliative care consulted - Psychiatry consulted #Acute UTI - UA suggestive of infection. Urine culture pending - Continue ceftriaxone IV. Adjust antibiotics based on urine culture sensitivities when resulted #Hypertension | Acute Hypotension outpatient regimen of lisinopril 20 mg daily, chlorthalidone 12.5 mg daily, Lasix 20 mg daily as needed - Hold all BP meds given hypotension/soft BP - monitor for need to resume - Continue IV fluids as above #Depression/anxiety continue sertraline 25 mg daily #COPD | left-sided lung carcinoma - no acute exacerbation. Follows with Dr. Govea outpatient Dispo: Will need placement at SNF on discharge. Her care prior to admission was not sufficient for the level of care she requires. Palliative care has been consulted to guide goals of care. Further plan pending palliative care and psych evaluations. Consulted palliative care and psychiatry Updated at bedside Discussed case with case management Admission and Anticipated Discharge Date Admission Date: March 15, 2025 Supervising Physician Co-Signing Physician Notes chart reviewed, case d/w S Alina JUNG. as above Subjective Patient seen and evaluated at bedside with her present. Patient reports "I just want to rest." She did not offer much further detail regarding how she is feeling. is very attentive to her at bedside. He reports that over the past 1 month, she has "just given up." He further describes that she has refused to eat or drink x 1 month. She also has been pretty much bedbound, sounds initially like it was per her choice but now it is secondary to her deconditioning. Her notes that she does not even have the strength to reposition herself. He denies any recent illness or inciting event to her decline. We discussed a palliative care consult to help assess her goals of care. Patient and her were both agreeable to this. No additional complaints or concerns at this time. Physical Exam Physical Exam: General: No acute distress. Chronically ill/frail appearing. Cachectic with bitemporal atrophy. Skin: Warm, dry. Pressure sores on buttocks/sacrum. Cardiac: Well-perfused. Rate in the 90s. Pulm: Normal respiratory effort. 91% on room air. Neuro: A&O x2 (person, place). Right arm paralysis and right leg paresis. Limited physical exam per patient request. Results & Data Results & Data Vital Signs (Past 12 Hours) Vital Signs Temp Pulse Pulse Resp BP Pulse Ox O2 Del Method 03/16/25 07:49 97.5 F L 104 H 104 H 15 103/74 100 Room Air 03/15/25 23:10 Nasal Cannula O2 Flow Rate 03/16/25 07:49 03/15/25 23:10 2 Laboratory Results Reviewed CBC with differential Reviewed BMP Reviewed UA/urine culture Diagnostic Findings Reviewed CXR PG Care Time/CCT Total # of Minutes Spent Total Time Spent with Patient: Total time spent is greater than 50% in coordination of care (as documented) at patient's floor/unit and/or counseling patient: Coding Level of Care Code 36646 SUB INP/OBS CARE 3/50MIN Diagnoses Failure to thrive in adult R62.7 Protein-calorie malnutrition, severe E43 UTI (urinary tract infection) N39.0
--- NOTE | 2025-03-16 15:33 | Palliative Care Consultation ---
Date of Consultation March 16, 2025 Assessment & Plan (1) Palliative care by specialist: met with pt and her spouse at bedside. ACP/goals of care discussion held for 36 mintues. Introduced Palliative Medicine and explained our role in advanced care planning, symptom management and navigation through the progression of life limiting disease. Patient and/or family were receptive to palliative services for goals of care discussions. Reviewed we are different from hospice, a home health nurse visiting service. (2) Counseling regarding advanced directives and goals of care: Patient exhibits current lack of decisional capacity based on the inability to convey understanding of personal PMHx, current medical condition, treatment options nor the risks / benefits/ potential outcomes of accepting/declining those options, and inability to make decisions based on such knowledge. Hospital does not have written documentation of patient wishes concerning her chosen proxy for medical decisions. Per PA [id number], in absence of written documentation of patient wishes, pt's proxy for medical decisions would be her spouse. Spouse shared that the pt has no written documents concerning goals of care. Pt does require a proxy for medical decisions. Spouse is present at bedside and agreeable to serving as proxy. See Family Meeting note for details of ACP/goals of care discussion. Plan DNR/DNI, continue all life prolonging treatments. Spouse requests Psych consult as pt was begun on antidepressant about 4wks ago (by PCP) and mood has worsened, question of delirium vs an undiagnosed dementia vs depression. History of Present Illness Reason for Consultation: goals of care Requesting Physician: Marlo Velásquez DO Attending Physician: Marlo Velásquez DO Allergies Allergy/AdvReac Type Severity Reaction Status Date / Time No Known Allergies Allergy Unverified 03/30/24 14:36 Home Medications Medication Instructions Recorded Confirmed Type albuterol sulfate 90 mcg/actuation 2 puff inhalation QID PRN 07/04/21 03/15/25 Rx aerosol inhaler shortness of breath or wheezing #18 grams atorvastatin 20 mg tablet 80 mg PO DAILY 11/16/22 03/15/25 History lorazepam 1 mg tablet 1 mg PO BID PRN Other 03/30/24 03/15/25 History aspirin 81 mg tablet,delayed 81 mg PO DAILY 03/15/25 03/15/25 History release chlorthalidone 25 mg tablet 12.5 mg PO DAILY 03/15/25 03/15/25 History ezetimibe 10 mg tablet 10 mg PO DAILY 03/15/25 03/15/25 History furosemide 20 mg tablet 20 mg PO DAILY PRN Fluid Retention 03/15/25 03/15/25 History lisinopril 20 mg tablet 20 mg PO DAILY 03/15/25 03/15/25 History multivitamin 1 tab PO DAILY 03/15/25 03/15/25 History oxycodone-acetaminophen 7.5 mg-325 1 tab PO Q8H 03/15/25 03/15/25 History mg tablet sertraline 25 mg tablet 25 mg PO DAILY 03/15/25 03/15/25 History silver sulfadiazine 1 % topical 1 applic topical BID PRN Other 03/15/25 03/15/25 History cream umeclidinium 62.5 mcg/actuation 1 inh inhalation DAILY PRN Other 03/15/25 03/15/25 History blister powder for inhalation (Incruse Ellipta) Patient History Family History (Updated 03/15/25 @ 18:48 by Chris Parra MD, PhD) Father , at 50 years of age from acute [facility] in the setting of tobacco abuse. No problems noted. Mother , at 83 years of age from natural causes. No problems noted. 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 Required: No marital status: marital status details: 2 sons (44y, alive/well; 22y, from suicide) Current Living Situation Comment: Unknown pt confused Feels Safe at Home: Yes Assistive Devices: Cane Review of Systems Review of Systems: Unobtainable due to cognitive status Physical Exam Constitutional: + ill appearing, + cachectic, + frail ap pearing and + malnourished bitemporal wasting Eyes: PERRL, conjunctivae normal, anicteric sclerae Respiratory: normal respiratory effort, lungs clear to auscultation Cardiovascular: RRR, no murmur, no edema Gastrointestinal (Abdomen): normal bowel sounds, soft, nontender, no hepatosplenomegaly Musculoskeletal: no cyanosis or clubbing, extremities motor strength 5/5 ARTIS Skin: + turgor decreased and + pallor Neurologic: Speech / Cognition: + abnormal speech intermittent echolalia, confused, not cooperative Psychiatric: Orientation: alert, oriented to person, oriented to place and + guarded Apperance: appeared stated age Speech: + pressured speech Affect: + anxious affect Thought Process: + tangential thought process Thought Content: + preoccupation Insight: + poor insight preoccupied with going home. Results & Data Vital Signs (Past 12 Hours) Vital Signs Temp Pulse Pulse Resp BP Pulse Ox Pulse Ox 03/16/25 12:48 36.6 C 90 90 16 85/47 L 91 03/16/25 11:28 100 03/16/25 09:08 03/16/25 07:49 36.4 C L 104 H 104 H 15 103/74 100 O2 Del Method O2 Flow Rate O2 Flow Rate 03/16/25 12:48 Room Air 03/16/25 11:28 2 03/16/25 09:08 Nasal Cannula 2 03/16/25 07:49 Room Air Laboratory Results Abnormal lab results 03/15/25 03/16/25 Range/Units Unknown 06:26 WBC 15.61 H (4.8-10.8) K/ul RBC 2.89 L (4.20-5.40) M/uL Hgb 9.6 L (12.0-16.0) g/dl Hct 28.7 L (37.0-47.0) % RDW Std Deviation 53.1 H (36.4-46.3) fL RDW Coeff of Shanice 14.6 H (11.5-14.5) % Neut # (Auto) 12.33 H (1.40-6.50) K/uL Carroll # (Auto) 0.94 H (0.11-0.59) K/uL Chloride 108 H (98-107) mmol/L BUN 35 H D (6-23) mg/dl BUN/Creatinine Ratio 44.9 H (10-20) Urine Appearance Cloudy A (Clear) Urine Protein Trace H (Negative) Urine Ketones Trace H (Negative) Ur Leukocyte Esterase 3+ H (Negative) Urine WBC (Auto) >50 H (0-5) /hpf U Hyaline Cast (Auto) 11-20 H (0-2) /lpf U Epithel Cells (Auto) 6-10 H (0-2) /hpf Urine Bacteria (Auto) 1+ H (None Seen) Hyaline Casts Present A (None Presnt) /lpf Diagnostic Findings Chest X-Ray 03/15/25 11:24 XR chest 1V portable CLINICAL HISTORY: hypotension COMPARISON STUDY: 05/14/2020 FINDINGS: Heart size and pulmonary vasculature are normal. No consolidation or pleural effusion. No pneumothorax. IMPRESSION: No acute findings. ACT 112: Negative or not required by law. Electronically signed by: Ricco Pierson M.D. 03/15/2025 11:38 AM Medications Administered Current Inpatient Medications Acetaminophen (Acetaminophen 325 Mg Tab) 650 mg PO Q6H PRN PRN Reason: pain 1-10;headache;T>100.4F Stop: 04/14/25 14:05 Aspirin (Aspirin 81 Mg Ectab) 81 mg PO DAILY CASSANDRA Stop: 04/15/25 08:59 Last Admin: 03/16/25 07:35 Dose: 81 mg Heparin Sodium (Porcine) (Heparin Sod 5,000 Unit/0.5 Ml Vial) 5,000 units SQ Q12 CASSANDRA Stop: 04/14/25 20:59 Last Admin: 03/16/25 07:35 Dose: 5,000 units Sodium Chloride (Nss) 1,000 mls @ 150 mls/hr IV .Q6H40M CASSANDRA Stop: 03/18/25 14:14 Last Infusion: 03/16/25 13:05 Dose: 150 mls/hr Ceftriaxone Sodium (Rocephin) 1,000 mg in 50 mls @ 100 mls/hr IV Q24H CASSANDRA Stop: 03/17/25 19:29 Last Infusion: 03/15/25 20:15 Dose: Infused Oxycodone/Acetaminophen (Oxycodone/Apap 7.5/325mg Tab) 1 tab PO Q8H CASSANDRA Stop: 03/29/25 14:59 Last Admin: 03/16/25 06:50 Dose: 1 tab Sertraline HCl (Sertraline Hcl 50 Mg Tablet) 25 mg PO DAILY CASSANDRA Stop: 04/15/25 08:59 Last Admin: 03/16/25 07:35 Dose: 25 mg PG Care Time/CCT Total # of Minutes Spent Total Time Spent with Patient: Total time spent is greater than 50% in coordination of care (as documented) at patient's floor/unit and/or counseling patient: [place] [address] IN/OBS CONSULT LVL 4,60M Patient Type New History Expanded Problem Focused Exam Expanded Problem Focused Medical Decision Making Low Complexity Diagnoses Palliative care by specialist Z51.5 Counseling regarding advanced directives and goals of care Z71.89
--- NOTE | 2025-03-16 20:39 | Electrocardiogram Report ---
Test Reason : Blood Pressure : */* mmHG Vent. Rate : 96 BPM Atrial Rate : 96 BPM P-R Int : 156 ms QRS Dur : 60 ms QT Int : 336 ms P-R-T Axes : 99 76 108 degrees QTcB Int : 424 ms Poor data quality, interpretation may be adversely affected Normal sinus rhythm Anteroseptal infarct , age undetermined Nonspecific T wave abnormality Abnormal ECG When compared with ECG of 21-Sep-2017 11:31, Anteroseptal infarct is now Present Nonspecific T wave abnormality now evident in Anterolateral leads Confirmed by Lukasz Grant ([id number]) on 03/16/2025 8:39:12 PM Referred By: REFERRED SELF Confirmed By: Lukasz Grant
[2025-03-17] MEDS ORDERED: Nursing to Pharmacy Communication SCH (06:30)
[2025-03-17 07:51] LABS: Hematocrit (blood only) 29.0 % (37.0-47.0); Hemoglobin 9.7 g/dl (12.0-16.0); Mean Corpuscular Hemoglobin 33.6 pg (25.0-34.0); Mean Corpuscular Volume 100.3 fL (80.0-100.0); Platelet Count 323 K/uL (130-400); RDW Standard Deviation 54.3 fL (36.4-46.3); Red Blood Count 2.89 M/uL (4.20-5.40); White Blood Count 15.35 K/ul (4.8-10.8)
[2025-03-17 08:45] LABS: Anion Gap 8.0 (3-11); Blood Urea Nitrogen 15.0 mg/dl (6-23); Calcium 8.2 mg/dl (8.6-10.3); Carbon Dioxide 24.0 mmol/L (21-32); Chloride 110.0 mmol/L (98-107); Creatinine Clr Calc Pharmacy 52.3 ml/min; Glucose 99.0 mg/dl (70-99(Fasting)); Potassium 4.0 mmol/L (3.5-5.1); Sodium 142.0 mmol/L (136-145)
[2025-03-17] MEDS: ACETAMINOPHEN 325 MG TAB PO PRN (09:01)
--- NOTE | 2025-03-17 12:20 | Hospitalist Progress Note ---
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 histiocytosis), depression, anxiety, hypertension, severe protein calorie malnutrition. Family reports she has had a progressive decline since her stroke and has been essentially bedbound with very limited oral intake. She presented with acute dehydration, SIVAKUMAR, generalized weakness, and acute UTI. #Failure to thrive in adult | Severe protein calorie malnutrition | Dehydration - elevated BUN/Cr at 65/1.68 consistent with dehydration on admission. S/p 2 L IV fluid with improvement to 35/0.78 - Unclear precipitating event behind this failure to thrive, as she initially was doing well after her stroke for 6 months, then for the past 1 month has had a significant progressive decline. DDx major depression, vascular dementia, among other etiologies - Estimated ~34 lb weight loss since 03/2024 - RD consulted for nutritional assessment, appreciate recommendations/adjustments to plan - PT/OT recommending SNF and 08/03 care, noting care [employer] SAL[employer]ERSON not sufficient for level of need required - Continue maintenance IV fluids for now, can likely discontinue tomorrow 03/18 - Palliative care consulted - Psychiatry consulted #Acute UTI - UA suggestive of infection. Urine culture without identification, repeat collection recommended but she has received IV ceftriaxone x 3 so culture results may be skewed - Continue ceftriaxone IV to complete course #Hypertension | Acute Hypotension outpatient regimen of lisinopril 20 mg daily, chlorthalidone 12.5 mg daily, Lasix 20 mg daily as needed - Hold all BP meds given hypotension/soft BP - monitor for need to resume - Continue IV fluids as above #Depression/anxiety - Psychiatry consulted - increase sertraline to 50 mg daily (was on 25 mg) and start Remeron 7.5 mg HS for sleep/appetite stimulation. Defer further titration to PCP #COPD | left-sided lung carcinoma - no acute exacerbation. Follows with Dr. Govea outpatient Dispo: Will need placement at SNF on discharge. Her care prior to admission was not sufficient for the level of care she requires. Palliative care has been consulted to guide goals of care. Further plan pending palliative care and psych evaluations. Updated family at bedside Decreased rate of IV fluids Discussed with psychiatry Increased Zoloft Started Remeron Admission and Anticipated Discharge Date Admission Date: March 15, 2025 Supervising Physician Co-Signing Physician Notes chart reviewed, case d/w S Alina JUNG. as above Subjective Patient seen and evaluated in bedside chair with her , son, and [id number] present. She appears much improved today compared to yesterday. She is independently feeding herself lunch with her left arm. She was more agreeable to answering questions from me today. Family agrees that this is the best they have seen her recently. Still awaiting psychiatry consult. No additional complaints or concerns at this time. Physical Exam Physical Exam: General: No acute distress. Chronically ill/frail appearing. Cachectic with bitemporal atrophy. Skin: Warm, dry. Pressure sores on buttocks/sacrum. Cardiac: Well-perfused. Rate in the 90s. Pulm: Normal respiratory effort. 92% on room air. Neuro: A&O x2 (person, place). Right arm paralysis with contracture and right leg paresis. Results & Data Results & Data Vital Signs (Past 12 Hours) Vital Signs Temp Pulse Resp BP Pulse Ox O2 Del Method 03/17/25 07:22 97.9 F 92 H 16 97/60 L 92 Room Air Laboratory Results Reviewed CBC Reviewed BMP PG Care Time/CCT Total # of Minutes Spent Total Time Spent with Patient: Total time spent is greater than 50% in coordination of care (as documented) at patient's floor/unit and/or counseling patient: Coding Level of Care Code 62475 SUB INP/OBS CARE 3/50MIN Diagnoses Failure to thrive in adult R62.7 Protein-calorie malnutrition, severe E43 UTI (urinary tract infection) N39.0"
--- NOTE | 2025-03-17 14:31 | Psychiatric Consultation ---
Date of Consultation March 17, 2025 Impression / Recommendations Impression Concern for post stroke depression related to left hemisphere stroke in July 2024 and loss of independence/physical disability. Would benefit from optimization of home Sertraline, initiation of appetite stimulant and sleep aid, with PCP f/u. No imminent safety concerns and patient denies current suicidality. EKG reviewed and pt can tolerate medication changes. Overall, I spent a total of 80 minutes with this case including review of chart records, nursing report, review of lab work, direct evaluation of the patient at bedside, counseling the patient, discussion of the patient with the hospitalist provider, discussion with the psychiatric liaison during clinical rounds, and documentation in the electronic health record. (1) Depression as late effect of cerebrovascular accident (CVA): (2) Severe single current episode of major depressive disorder: (3) UTI (urinary tract infection): Plan -Increase Sertraline to 50mg daily -Start Mirtazapine 7.5mg HS -F/U with PCP regarding depression care -No imminent safety concerns -No indication for bedside sitter -Does not required inpatient psychiatry at this time Psych History Identifying Data 64 y/o F h/o CVA in July 2024 with right arm paralysis and right leg paresis sequela, COPD, left-sided lung carcinoma (e.g. histiocytosis), depression, anxiety, hypertension, severe protein calorie malnutrition presenting with dehydration, UTI, SIVAKUMAR, and weakness. Psychiatry consulted for evaluation given failure to thrive concerns. Chief Complaint Failure to thrive History of Present Illness Patient seen with at bedside. reports patient has complained of suicidal ideation and lack of motivation to live. Patient has demonstrated trouble maintaining sleep and has quit eating. Symptoms have significantly worsened since last month. Patient had distant past suicide attempt when they were younger and having relationship disputes via overdose of medications. Does not recall past major depressive episodes. After her CVA she had in-home rehab with speech and PTOT therapy. Patient was highly independent before and notes she had difficulty with coping as she could not use her right arm and it was difficult for her to ambulate. On interview the patient reports having sad her moods and was tearful. Complains of trouble maintaining sleep and loss of appetite. Feels depressed about her loss of independence and complains of intermittent suicidal ideation. Denies past mental health treatment. Zoloft was initiated by primary care doctor recently. Patient lives with . Allergies Allergy/AdvReac Type Severity Reaction Status Date / Time No Known Allergies Allergy Unverified 03/30/24 14:36 Home Medications Medication Instructions Recorded Confirmed Type albuterol sulfate 90 mcg/actuation 2 puff inhalation QID PRN 07/04/21 03/15/25 Rx aerosol inhaler shortness of breath or wheezing #18 grams atorvastatin 20 mg tablet 80 mg PO DAILY 11/16/22 03/15/25 History lorazepam 1 mg tablet 1 mg PO BID PRN Other 03/30/24 03/15/25 History aspirin 81 mg tablet,delayed 81 mg PO DAILY 03/15/25 03/15/25 History release chlorthalidone 25 mg tablet 12.5 mg PO DAILY 03/15/25 03/15/25 History ezetimibe 10 mg tablet 10 mg PO DAILY 03/15/25 03/15/25 History furosemide 20 mg tablet 20 mg PO DAILY PRN Fluid Retention 03/15/25 03/15/25 History lisinopril 20 mg tablet 20 mg PO DAILY 03/15/25 03/15/25 History multivitamin 1 tab PO DAILY 03/15/25 03/15/25 History oxycodone-acetaminophen 7.5 mg-325 1 tab PO Q8H 03/15/25 03/15/25 History mg tablet sertraline 25 mg tablet 25 mg PO DAILY 03/15/25 03/15/25 History silver sulfadiazine 1 % topical 1 applic topical BID PRN Other 03/15/25 03/15/25 History cream umeclidinium 62.5 mcg/actuation 1 inh inhalation DAILY PRN Other 03/15/25 03/15/25 History blister powder for inhalation (Incruse Ellipta) Patient History Family History (Updated 03/15/25 @ 18:48 by Chris Parra MD, PhD) Father , at 50 years of age from acute MT in the setting of tobacco abuse. No problems noted. Mother , at 83 years of age from natural causes. No problems noted. Social History (Updated 03/15/25 @ 18:49 by Chris Parra MD, PhD) Smoking Status: Current every day smoker Tobacco Type: Cigarettes Age Started Using Tobacco: 12; packs per day: 1; Cigarettes Per Day: 1/2 pack per day; Second Hand Exposure: Yes; Hx Alcohol Use: No (Unknown pt confused) Hx Substance Use: No (Unknown pt confused) Preferred Language: Japanese Communication Ability: Impaired At Home Independent Call Center Agent Required: No marital status: marital status details: 2 sons (44y, alive/well; 22y, from suicide) Current Living Situation Comment: Unknown pt confused Feels Safe at Home: Yes Assistive Devices: Cane Physical Exam Mental Examination: Appearance: Disheveled (thin) Eye Contact: Sporadic Contact Motor Behavior: Slowed Speech: Soft Mood: Sad Affect: Congruent, Sad and Withdrawn Thought Process: Intact and Linear Thought Content: Intact Hallucinations: None Insight: Fair Judgement: Fair Vital Signs (Past 24 Hours): Last Vital Signs Temp 36.6 C 03/17/25 14:01 Pulse 82 03/17/25 14:01 Resp 16 03/17/25 14:01 BP 99/65 L 03/17/25 14:01 Pulse Ox 95 03/17/25 14:01 O2 Del Method Room Air 03/17/25 14:01 O2 Flow Rate 2.0 03/16/25 16:08 Results & Data (PSY) Medications Administered Acetaminophen (Acetaminophen 325 Mg Tab) 650 mg PO Q6H PRN PRN Reason: pain 1-10;headache;T>100.4F Stop: 04/14/25 14:05 Last Admin: 03/17/25 09:01 Dose: 650 mg Documented By: CASSANDRA Aspirin (Aspirin 81 Mg Ectab) 81 mg PO DAILY [facility] Stop: 04/15/25 08:59 Last Admin: 03/17/25 08:58 Dose: 81 mg Documented By: Admin: 03/16/25 07:35 Dose: 81 mg Documented By: EUSEBIO Heparin Sodium (Porcine) (Heparin Sod 5,000 Unit/0.5 Ml Vial) 5,000 units SQ Q12 CASSANDRA Stop: 04/14/25 20:59 Last Admin: 03/17/25 09:02 Dose: 5,000 units Documented By: Admin: 03/16/25 20:28 Dose: 5,000 units Documented By: brennon Admin: 03/16/25 07:35 Dose: 5,000 units Documented By: Admin: 03/15/25 23:08 Dose: 5,000 units Documented By: [id number] Sodium Chloride (Nss) 1,000 mls @ 80 mls/hr IV .[id number] CASSANDRA Stop: 03/18/25 14:14 Last Infusion: 03/17/25 12:44 Dose: 80 mls/hr Documented By: Admin: 03/17/25 10:58 Dose: 100 mls/hr Documented By: Infusion: 03/17/25 08:30 Dose: Infused Documented By: Admin: 03/17/25 01:39 Dose: 150 mls/hr Documented By: Infusion: 03/16/25 23:35 Dose: Infused Documented By: Admin: 03/16/25 16:54 Dose: 150 mls/hr Documented By: Infusion: 03/16/25 15:45 Dose: Infused Documented By: Infusion: 03/16/25 13:05 Dose: 150 mls/hr Documented By: Admin: 03/16/25 05:34 Dose: 80 mls/hr Documented By: Catalina Infusion: 03/16/25 04:55 Dose: Infused Documented By: Catalina Infusion: 03/15/25 20:15 Dose: 80 mls/hr Documented By: Infusion: 03/15/25 19:44 Dose: 0 mls/hr Documented By: Catalina Admin: 03/15/25 15:54 Dose: 80 mls/hr Documented By: KATRINA Ceftriaxone Sodium (Rocephin) 1,000 mg in 50 mls @ 100 mls/hr IV Q24H CASSANDRA Stop: 03/17/25 19:29 Last Infusion: 03/16/25 21:05 Dose: Infused Documented By: Admin: 03/16/25 20:34 Dose: 100 mls/hr Documented By: brennon Infusion: 03/15/25 20:15 Dose: Infused Documented By: Admin: 03/15/25 19:43 Dose: 100 mls/hr Documented By: Catalina Oxycodone/Acetaminophen (Oxycodone/Apap 7.5/325mg Tab) 1 tab PO Q8H CASSANDRA Stop: 03/29/25 14:59 Last Admin: 03/17/25 06:06 Dose: 1 tab Documented By: brennon Admin: 03/17/25 00:01 Dose: 1 tab Documented By: Admin: 03/16/25 16:09 Dose: 1 tab Documented By: Admin: 03/16/25 06:50 Dose: 1 tab Documented By: [id number] Admin: 03/15/25 23:17 Dose: 1 tab Documented By: [id number] Admin: 03/15/25 15:11 Dose: 1 tab Documented By: BROWN Sertraline HCl (Sertraline Hcl 50 Mg Tablet) 25 mg PO DAILY CASSANDRA Stop: 04/15/25 08:59 Last Admin: 03/17/25 08:58 Dose: 25 mg Documented By: Admin: 03/16/25 07:35 Dose: 25 mg Documented By: EUSEBIO [place] [address] IN/OBS CONSULT LVL 5,80M Patient Type New History Comprehensive Exam Comprehensive Medical Decision Making Moderate Complexity Diagnoses Depression as late effect of cerebrovascular accident (CVA) I69.398; F06.31 Severe single current episode of major depressive disorder F32.2 UTI (urinary tract infection) N39.0
[2025-03-17] MEDS: MIRTAZAPINE TAB 15 MG TAB PO SCH (21:07)
--- NOTE | 2025-03-18 08:14 | Hospitalist Progress Note ---
"Date of Service March 18, 2025 Assessment & Plan (1) Failure to thrive in adult: (2) Protein-calorie malnutrition, severe: (3) UTI (urinary tract infection): Plan 64-year-old female with past medical history of CVA in July 2024 with right arm paralysis and right leg paresis sequela, COPD, left-sided lung carcinoma (e.g. histiocytosis), depression, anxiety, hypertension, severe protein calorie malnutrition. Family reports she has had a progressive decline since her stroke and has been essentially bedbound with very limited oral intake. She presented with acute dehydration, SIVAKUMAR, generalized weakness, and acute UTI. #Failure to thrive in adult | Severe protein calorie malnutrition | Dehydration - elevated BUN/Cr at 65/1.68 consistent with dehydration on admission. S/p 2 L IV fluid with improvement to 35/0.78 - Unclear precipitating event behind this failure to thrive, as she initially was doing well after her stroke for 6 months, then for the past 1 month has had a significant progressive decline. 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 Defer further titration to PCP #Hypertension | Acute Hypotension outpatient regimen of lisinopril 20 mg daily, chlorthalidone 12.5 mg daily, Lasix 20 mg daily as needed - Hold all BP meds given hypotension/soft BP - monitor for need to resume - Received IV maintenance fluids x 3 days - BP now improved, 120/75 - IV fluids discontinued, encourage oral hydration #Acute UTI - UA suggestive of infection. Urine culture without identification. Patient without urinary symptoms - S/p 3 doses IV Ceftriaxone, no further antibiotics needed #COPD | left-sided lung carcinoma - no acute exacerbation. Follows with Dr. Govea outpatient Dispo: PT/OT recommending SNF placement. Her care prior to admission was not sufficient for the level of care she requires. Palliative care continues to follow. Psychiatry provided recommendations that been implemented. She will need to follow-up with her PCP for further titration of her depression medications in the outpatient setting. Updated at bedside Admission and Anticipated Discharge Date Admission Date: March 15, 2025 Supervising Physician Co-Signing Physician Notes chart reviewed, case d/w S Alina JUNG. as above Subjective Patient seen and evaluated at bedside with her present. She is sleeping soundly in bed. reports Sumaya told him this morning that she did not sleep well overnight. Allowed Sumaya to rest and proceeded with conversation with . He is hopeful that the medication adjustments recommended by janine goodrich make a difference. He thinks SNF would be more appropriate than [facility] for Sumaya's level of ability right now, I told him that I agree. We discussed that Sumaya's blood pressure is improved today and she likely will not require further IV fluids today. Will monitor her oral fluid intake to ensure she does not become dehydrated. No additional complaints or concerns at this time. Physical Exam Physical Exam: General: No acute distress. Chronically ill/frail appearing. Sleeping soundly in bed. Skin: Warm, dry. Cardiac: Well-perfused. Rate in the 80s. Pulm: Normal respiratory effort. 93% on room air. Neuro: Right arm paralysis with contracture and right leg paresis. Results & Data Results & Data Vital Signs (Past 12 Hours) Vital Signs Temp Pulse Resp BP Pulse Ox O2 Del Method 03/18/25 07:44 98.1 F 88 15 120/75 93 Room Air 03/17/25 23:05 98.1 F 80 18 115/67 95 Room Air 03/17/25 20:45 Room Air Laboratory Results Reviewed CBC Reviewed BMP PG Care Time/CCT Total # of Minutes Spent Total Time Spent with Patient: Total time spent is greater than 50% in coordination of care (as documented) at patient's floor/unit and/or counseling patient: Coding Level of Care Code 65084 SUB INP/OBS CARE 2/35MIN Diagnoses Failure to thrive in adult R62.7 Protein-calorie malnutrition, severe E43 UTI (urinary tract infection) N39.0"
[2025-03-18] MEDS: SERTRALINE HCL 50 MG TABLET PO SCH (08:18)
[2025-03-18 08:41] LABS: Hematocrit (blood only) 28.8 % (37.0-47.0); Hemoglobin 9.4 g/dl (12.0-16.0); Mean Corpuscular Hemoglobin 33.0 pg (25.0-34.0); Mean Corpuscular Volume 101.1 fL (80.0-100.0); Platelet Count 295 K/uL (130-400); RDW Standard Deviation 56.7 fL (36.4-46.3); Red Blood Count 2.85 M/uL (4.20-5.40); White Blood Count 13.71 K/ul (4.8-10.8)
[2025-03-18 09:10] LABS: Anion Gap 8.0 (3-11); Blood Urea Nitrogen 9.0 mg/dl (6-23); Calcium 7.9 mg/dl (8.6-10.3); Carbon Dioxide 24.0 mmol/L (21-32); Chloride 109.0 mmol/L (98-107); Glucose 91.0 mg/dl (70-99(Fasting)); Potassium 3.7 mmol/L (3.5-5.1); Sodium 141.0 mmol/L (136-145)
[2025-03-18 09:17] LABS: Creatinine Clr Calc Pharmacy 58.5 ml/min
--- NOTE | 2025-03-19 07:47 | Hospitalist Progress Note ---
Date of Service March 19, 2025 Assessment & Plan (1) Failure to thrive in adult: (2) Protein-calorie malnutrition, severe: (3) UTI (urinary tract infection): (4) Constipation: Plan 64yo F with PMHx for CVA in July 2024 with right arm paralysis and right leg paresis sequela, COPD, left-sided lung carcinoma (e.g. histiocytosis), depression, anxiety, hypertension, severe protein calorie malnutrition. Family reports she has had a progressive decline since her stroke and has been essentially bedbound with very limited oral intake. She presented with acute dehydration, SIVAKUMAR, generalized weakness, and possibly acute UTI. #Failure to thrive in adult #Severe protein calorie malnutrition #Dehydration - elevated BUN/Cr at 65/1.68 consistent with dehydration on admission. S/p 2 L IV fluid with improvement to 35/0.78 Unclear precipitating event behind this failure to thrive, as she initially was doing well after her stroke for 6 months, then for the past 1 month has had a significant progressive decline. Most likely cause is major depression, but could also consider vascular dementia and other etiologies if no improvement with treatment of depression. Estimated ~34 lb weight loss since 03/[address]24 [address] consulted for nutritional assessment, appreciate recommendations/adjustments to plan Palliative/psych consulted while inpatient --> started remeron 7.5mg HS for mood/appetite - reports improvement. Zoloft increased to 50mg from prior 25mg ~3 wks ago. Further titration outpatient with PCP Labs added for today, also B12/folate given MCV> 100 as well as TSH given depression. 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 +BS but constipated on exam and wanted to hold off KUB but ordered miralax, colace BID and fleets enema x 1 and suspect aspect of constipation also contributing and could have been making dehydration worse leading to worsened constipation. Patient's does report worsened decline since stopping home therapy in November/December however does have increased decline over the past month since starting on this medication Monitor to decrease pain medication but continue w/ bowel regimen for now, monitor anemia labs/TSH for completeness #Depression/anxiety - increased depression since stroke in July w/ loss of independence/disability Psych consulted while inpatient Zoloft increased to 50mg as above New start Remeron 7.5mg HS for sleep/appetite w/ improvement -- monitor to increase to 15mg HS Prior rx ativan but sparing use at home (also w/ some grief from neice murdered several years ago and of son) Message to psych to see if additional recs/increase warranted given ongoing depression/tearful during encounter 03/19 about continued inpatient stay #Hypertension # Acute Hypotension hx HTN on lisinopril 20mg, lasix 20mg prn and chlorthalidone 12.5mg MANAGER TRANSIT but presented with hypotension/soft BP and home meds on hold/provided IVF hydration x 3 days and BP stable 117/70 Suspect should NOT be on any diuretics (lasix/chlorthalidone) with poor PO intake and SIVAKUMAR on admission (resolved with IVF) and monitoring off. No hx HF listed and no hypoxia/leg edema on exam and PO hydration encouraged w/ remeron start as above Monitor #Acute UTI - UA suggestive of infection. Provided with Ceftriaxone IV x 3 days. Urine cx mixed javier, repeat collection ordered to ensure resolved/no further treatment #COPD | left-sided lung carcinoma Adult pulmonary Langerhans cell histiocytosis: Per pulm note "Suspect respiratory bronchiolitis versus Langerhans' cell histiocytosis X Treatment and smoking cessation" No acute exacerbation. Follows with Dr. Govea outpatient ?progression w/ weight loss Dispo: continued inpatient stay, PT/OT rec SNF (CM notified to f/u after evals today about referrals - req possible [facility]) Palliative/psych to continue to follow, outpatient PCP titration for depression/anxiety medications Updated at bedside Admission and Anticipated Discharge Date Admission Date: March 15, 2025 Supervising Physician Co-Signing Physician Notes The patient was not seen by me. The chart was reviewed. Case discussed with CHRISTELLE Robledo. Agree with assessment and plan Subjective Eval this morning, in room. Getting labs drawn. Reports mood improved as well as appetite but tearful/crying about people "acting like it's a big deal". No recent stressors/deaths in family but did loose son >10 yrs ago, niece they raised murdered several years ago that was stressful. reports had been doing ok post CVA at [place] and doing well with home health rehab and brace to the leg but once therapy stopped she had a decline/didn't want to get up and move at all. Did discuss recent pain medication by PCP - they do endorse having started this. Rare use ativan and no rx since this past Winter. Discussed concerns for constipation, KUB ordered but patient wanting to avoid but does have increased abdominal discomfort and feeling like needs to move her bowels. reports prior issue with constipation before starting this medication and need to use enema at home in the past. Nursing to provide with bowel regimen/enema and will monitor. Patient "sick of being in the hospital" and wants to get out [facility]. Discussed will touch base w/ CM and see about ref. Reports seeing PT provider this morning but just woke up but that they told her they would be back around. No CP/SOB reported. Decent appetite. Questions/concerns addressed at this time. Physical Exam 2 Physical Exam: General: 64yo female laying in bed, in room, tearful/reports being tired of being in the hospital HEENT: head atraumatic, normocephalic Resp: even/unlabored, slightly diminished in the bases but no wheezing/rales, 95% on RA CV: RRR, no significant m/r/g, no pitting edema GI: +BS, slight distension, +palpable stool, no overt tenderness but reports constipation no sherman MSK/Neuro: baseline R arm paralysis/contracture, R leg paresis from prior CVA but answering questions appropriately, following commands as able Psych: alert/oriented, tearful/crying at times about being in the hospital/wanting to go home Results & Data Results & Data Vital Signs (Past 12 Hours) Vital Signs Temp Pulse Resp BP Pulse Ox O2 Del Method 03/18/25 22:35 36.5 C 86 18 93/62 L 94 Room Air 03/18/25 21:23 Room Air Laboratory Results 03/19/25 10:35 03/19/25 10:35 Iron studies, B12, folate, TSH, Lyme pending PG Care Time/CCT Total # of Minutes Spent Total Time Spent with Patient: Total time spent is greater than 50% in coordination of care (as documented) at patient's floor/unit and/or counseling patient: Coding Level of Care Code 08901 SUB INP/OBS CARE 350MIN Diagnoses Failure to thrive in adult R62.7 Protein-calorie malnutrition, severe E43 UTI (urinary tract infection) N39.0 Constipation K59.00
--- NOTE | 2025-03-19 08:00 | Palliative Family Discussion ---
Date of Service March 16, 2025 Patient Directed Conference Time of Meetin:00 - 15:45 Participants: Keara Mae AGACNP Patient participation: minimal Patient Support System: spouse and 2 adult daughters Other Healthcare Provider Participation: None Meeting Location: pt room Advanced Directive available: no If yes, descriptors: The patient's surrogate medical decision maker participated: spouse at bedside Legally authorized health care proxy: Hospital does not have written documentation of patient wishes concerning her chosen proxy for medical decisions. Per PA [id number], in absence of written documentation of patient wishes, pt's proxy for medical decisions would be her spouse. Other surrogate: n/a A family meeting was held for SUMAYA RASHID. This meeting was necessary for determining the appropriate course of treatment. Topics of Discussion Topics of Discussion: 1. delirium vs dementia 2. pt values 3. goals of care 4. code status Other Content of Meetin. Opportunity given for participants to speak and ask questions. 2. Participants were assured of attention to patient comfort. 3. Reassurance provided. 4. Support was provided for informed, good-jose decisions. 5. Emotions expressed by family were acknowledged and addressed. 6. Follow-up Outpatient: n/a 7. Plan of Care: DNR/DNI, continue all other life prolonging treatment ging palliative care situations beyond the clinicians level of competence. Met with pt and her spouse, Conrad, at bedside, discussed pt's recent cognitive/functional decline, deconditioning, depression and possible plan for discharge to [facility] to regain strength and independence with hope to eventually return home. Conrad expressed frustration with pt's lack of motivation to do much of anything for weeks leading up to admission. He shared that she had been started on an antidepressant by her PCP about three weeks ago, but she continued to experience lack of motivation, lethargy, anorexia and anhedonia. Conrad shared that they have been for more than 40 years and had two daughters who live nearby and a son, who (suicide) a couple years ago. 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 Conrad shared that the patient had been doing well until about three weeks ago, but has been progressively more withdrawn to the point of refusing to get out of bed at all. He shared that she has also asked him "to just ler her " multiple times. Pt was minimally interactive but awake, her mood was agitated and she denied any suicidal ideation, but did share that she has "no desire to eat or do anything". Pt was resistant to communicating or answering questions and asked to be left alone Conrad shared that she has has very poor qualityo fo life since her stroke and has had "periods of depression" for many years, but never to this degree. Discussed code status and helped patient and Conrad understand that CPR is only done after a person has and involves uncomfortable and invasive procedures that, if successful. have high risk of multiple complications including but not limited to rib fractures, pneumo/hemothorax, SIVAKUMAR, ventilator dependence, anoxic brain injury, and local intermodal truck driver/permanent cognitive and functional deficits. CPR survival: Only about 10% of patients who have aot-[id number] sudden cardiac arrest survive to hospital discharge, with many survivors having neurologic impairment. This rate is even lower among patients with serious coexisting conditions, ie chance of survival to hospital discharge for in- hospital CPR in older people is low to moderate (15%) and decreases with age, comorbidities, performance status and frailty: for pts > 70 yo, more than half of the patients who initially survived resuscitation in the hospital before hospital discharge. The pooled survival to discharge after in-hospital CPR was 18% for patients between 70 and 79 years old, 15% for patients between 80 and 89 years old and 11% for patients of 90 years and older. (Yong ANN, Jorge LJ, Hayder F, et al. Trends in short- and long-term survival among aii-fc-sivexkaw cardiac arrest patients alive at hospital arrival. Circulation 2014;130:1883- 1890. AND Yohana C, Roger T, Luigi R, et al. Performance of clinical risk scores to predict mortality and neurological outcome in cardiac arrest patients. Resuscitation 2019;136:21-29.) Pt and Conrad both request code status change to DNR/DNI. Conrad requested pt be evaluated by both psych and PT/OT (concern for deconditioning) prior to discharge. We will sign off on this patient as goals of care are clearly established for DNR/DNI but continue all other life prolonging therapies Thank you for including Palliative Care in the management of this patient. Please call with any questions or concerns regarding this consultation. Time Involved in Meeting: I spent70 minutes overall addressing this case: 10 in medical data review/discussion with referring provider(s) and/or preparation for the visit 40 in direct interaction with the patient and spouse 40 Advance Care Planning/Goals of Care discussions as detailed above in note (must be >16min) 10 in subsequent review and synthesis of assessment and plan 10 in communicating with other providers regarding the patient's case: attending, KATRINARAnselmo, CM
[2025-03-19 11:03] LABS: Hematocrit (blood only) 29.5 % (37.0-47.0); Hemoglobin 9.8 g/dl (12.0-16.0); Mean Corpuscular Hemoglobin 33.0 pg (25.0-34.0); Mean Corpuscular Volume 99.3 fL (80.0-100.0); Platelet Count 282 K/uL (130-400); RDW Standard Deviation 55.7 fL (36.4-46.3); Red Blood Count 2.97 M/uL (4.20-5.40); White Blood Count 12.31 K/ul (4.8-10.8)
[2025-03-19] MEDS: POLYETHYLENE (MIRALAX) 17 GM PACK PO SCH (11:07)
[2025-03-19] MEDS: DOCUSATE SODIUM 100 MG CAP PO SCH (11:07)
[2025-03-19] MEDS: SOD PHOSPHATE/SOD BIPHOSPHATE ENEMA 132 ML BTL PR STA (11:09)
[2025-03-19 11:14] LABS: Anion Gap 6.0 (3-11); Calcium 8.2 mg/dl (8.6-10.3); Carbon Dioxide 26.0 mmol/L (21-32); Chloride 109.0 mmol/L (98-107); Magnesium 1.7 mg/dl (1.7-2.4); Potassium 3.1 mmol/L (3.5-5.1); Sodium 141.0 mmol/L (136-145)
[2025-03-19 11:20] LABS: Blood Urea Nitrogen 8.0 mg/dl (6-23); Creatinine Clr Calc Pharmacy 56.6 ml/min; Glucose 112.0 mg/dl (70-99(Fasting)); Iron 10.0 mcg/dl (35-150); Total Iron Binding Cap Calc 144.0 mcg/dl (250-450); Transferrin 103.0 mg/dl (200-360); Transferrin (FE) Percent Satur 7.0 % (15-50)
[2025-03-19 11:34] LABS: Thyroid Stimulating Hormone 2.618 uIu/ml (0.300-4.500)
[2025-03-19 11:40] LABS: Ferritin 473.3 ng/ml (8-388)
[2025-03-19 11:43] LABS: Folate (Folic Acid),Ser orPlas 20.94 ng/ml (>5.38)
[2025-03-19] MEDS: POTASSIUM CHLORIDE CRTAB 20 MEQ TABCR PO STA (11:43)
[2025-03-19] MEDS: MAGNESIUM SULFATE / D5W 1 GM/100 ML BAG IV ONE (11:43)
[2025-03-19 11:44] LABS: Vitamin B12 593.0 pg/ml (180-914)
[2025-03-19] MEDS: SENNA 8.6 MG TAB PO SCH (22:35)
[2025-03-20] MEDS: CHOLECALCIFEROL 10 MCG (400 UNITS) TAB PO SCH (08:16)
--- NOTE | 2025-03-20 08:16 | Hospitalist Progress Note ---
Date of Service March 20, 2025 Assessment & Plan (1) Failure to thrive in adult: (2) Constipation: (3) UTI (urinary tract infection): (4) Protein-calorie malnutrition, severe: Plan 64yo F with PMHx for CVA in July 2024 with right arm paralysis and right leg paresis sequela, COPD, left-sided lung carcinoma (e.g. histiocytosis), depression, anxiety, hypertension, severe protein calorie malnutrition. Family reports she has had a progressive decline since her stroke and has been essentially bedbound with very limited oral intake. She presented with acute dehydration, SIVAKUMAR, generalized weakness, and possibly acute UTI. #Failure to thrive in adult #Severe protein calorie malnutrition #Dehydration - elevated BUN/Cr at 65/1.68 consistent with dehydration on admission. S/p 2 L IV fluid with improvement to 35/0.78 Unclear precipitating event behind this failure to thrive, as she initially was doing well after her stroke for 6 months, then for the past 1 month has had a significant progressive decline. Most likely cause is major depression, but could also consider vascular dementia and other etiologies if no improvement with treatment of depression. Estimated ~34 lb weight loss since 03/2024. TSH, B12 wnl, Lyme negative RD consulted for nutritional assessment, appreciate recommendations/adjustments to plan Palliative/psych consulted while inpatient Started Remeron 7.5mg HS for mood/appetite. Zoloft increased to 50mg from prior 25mg ~3 wks ago. --> reported improvement in depression/mental health on 03/19, improved 03/20 but ongoing poor sleep --> increasing remeron to 15mg HS. Further titration zoloft/other outpatient w/ PCP/psych Bowel regimen as below -- moderate BM afternoon 03/20. Continue PO bowel regimen, suppository if needed. Monitor to decrease PO percocet but wanting to continue current dose for now Suspect improvement in PO since moving her bowels. Diuretics remain on HOLD, likely would STOP at dc unless edema/hypoxia/etc Refused labs this morning, have been added for AM 8/ PT/OT rec SNF vs 08/03 care - CM notified and referrals sent #Constipation Suspected dehydration and new pain meds in setting of baseline ambulation difficulty since stroke and joint pain making constipation worse along with baseline chlorthalidone/lasix use for HTN without hx CHF/no edema on exam and poor PO hydration at baseline Miralax BID, colace BID, senna HS ordered and provided enema x 2 on 03/19 and no BM but lots of gas. Had declined KUB but given no BM overnight have obtained this morning and significant fecal retention (Noting refused PM PO bowel regimen) Dulcolax IL x 1 this morning MODERATE BM afternoon 03/20 -- continue miralax/colace, ambulation as tolerated Consider decreasing home percocet to reduce constipation but has been continued for now #Depression/anxiety - increased depression since stroke in July w/ loss of independence/disability and psych has been consulted. Suspected MDD, first episode. 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 No hx HF listed and no hypoxia/leg edema on exam and PO hydration encouraged w/ remeron start as above Check cortisol AM to ensure not deficient as contributing to sx? #Acute UTI - UA suggestive of infection. Provided with Ceftriaxone IV x 3 days. Urine cx mixed javier, repeat collection ordered to ensure resolved/no further treatment but has refused to provide sample but can obtain as able #COPD | left-sided lung carcinoma Adult pulmonary Langerhans cell histiocytosis: Per pulm note "Suspect respiratory bronchiolitis versus Langerhans' cell histiocytosis X Treatment and smoking cessation" No acute exacerbation. Follows with Dr. Govea outpatient ?progression w/ weight loss Dispo: continued inpatient stay, PT/OT rec SNF. CM notified/sent [facility] request for [facility]. Hopefully bed/auth next 24-48hrs Remeron increased Appreciate psych/palliative consults (per palliative, can follow but defer at the present time but if repeat admissions w/ progressive FTT should be considered- can arrange outpt f/u) updated at bedside 03/19, can update as needed/in AM Admission and Anticipated Discharge Date Admission Date: March 15, 2025 Supervising Physician Co-Signing Physician Notes The patient was not seen by me. The chart was reviewed. Case discussed with CHRISTELLE Robledo. Agree with assessment and plan Subjective Patient declined labs this morning. KUB obtained due to lack of bowel movement, initial review without read w/ significant fecal ball/retention and requirement for agents rectally and was provided Dulcolax IL x 1. Saw patient afternoon 03/20, resting in bed following bowel movement. Reports decent appetite, pain controlled. Would like to keep pain medication dose at present level but did discuss possible decreasing to prevent constipation in f/u discussion tomorrow. Agreeable to labs in AM, have been ordered. Reports ok sleep but not great. Discussed current remeron dosing, benefit for appetite/mood as well as sleep and agreeable to increase to 15mg HS. Not thrilled about continued inpatient stay but hopefully will hear back from [facility] in next 24-48hrs and can dc when able. Family going to visit barbi, excited about that. Mood dose appear improved, did smile/laugh occasionally, much improved from prior flat/depressed affect but remains depressed. No SI/HI. No fever/chills, chest pain, shortness of breath, abdominal pain, nausea/vomiting. Physical Exam 2 Physical Exam: General: 64yo female laying in bed, no one in room at present, NAD HEENT: head atraumatic, normocephalic, mm slightly dry Resp: even/unlabored, slightly diminished in the bases but no wheezing/rales on RA CV: RRR, no significant m/r/g, no pitting edema GI: +BS, less distension, no overt tenderness/guarding or rebound, R sided stool appreciated no sherman MSK/Neuro: baseline R arm paralysis/contracture, R leg paresis from prior CVA but answering questions appropriately, following commands as able Psych: alert/oriented, improved but remains w/ flat affect, not thrilled about continued inpatient stay but cooperative/more pleasant/less tearful Results & Data Results & Data Vital Signs (Past 12 Hours) Vital Signs Temp Pulse Resp BP Pulse Ox O2 Del Method 03/20/25 07:13 37.1 C 86 18 132/73 96 Room Air 03/19/25 23:46 36.8 C 88 12 126/71 93 Room Air 03/19/25 21:00 Room Air Laboratory Results 03/19/25 10:35 03/19/25 10:35 Diagnostic Findings KUB X-Ray 03/20/25 07:00 KUB HISTORY: Acute generalized abdominal pain with reported constipation eval constipation COMPARISON: PET/CT December 15, 2017 FINDINGS: Noncontrast bowel gas pattern. Moderate colonic fecal retention. Mild gaseous distention of the rectum and splenic flexure. No renal calculi. No ureteral calculi. No pneumoperitoneum or pneumatosis. Degenerative changes of the spine, pelvis and hips. Vascular calcification of the right hemipelvis. No fracture. IMPRESSION: 1. Nonobstructive bowel gas pattern. 2. Moderate colonic fecal retention. ACT 112: Negative or not required by law. The above report was generated using voice recognition software. It may contain grammatical, syntax or spelling errors. Electronically signed by: Rajeev Banks M.D. 03/20/2025 9:23 AM PG Care Time/CCT Total # of Minutes Spent Total Time Spent with Patient: Total time spent is greater than 50% in coordination of care (as documented) at patient's floor/unit and/or counseling patient: Coding Level of Care Code 06783 SUB INP/OBS CARE 3/50MIN Diagnoses Failure to thrive in adult R62.7 Constipation K59.00 UTI (urinary tract infection) N39.0 Protein-calorie malnutrition, severe E43
--- NOTE | 2025-03-20 09:24 | XRay Report ---
KUB HISTORY: Acute generalized abdominal pain with reported constipation eval constipation COMPARISON: PET/CT December 15, 2017 FINDINGS: Noncontrast bowel gas pattern. Moderate colonic fecal retention. Mild gaseous distention of the rectum and splenic flexure. No renal calculi. No ureteral calculi. No pneumoperitoneum or pneum atosis. Degenerative changes of the spine, pelvis and hips. Vascular calcification of the right hemip richie. No fracture. IMPRESSION: 1. Nonobstructive bowel gas pattern. 2. Moderate colonic fecal retention. ACT 112: Negative or not required by law. The above report was generated using voice recognition software. It may contain grammatical, syntax o r spelling errors. Electronically signed by: Rajeev Banks M.D. 03/20/2025 9:23 AM
[2025-03-20] MEDS: IRON SUCROSE 300 MG in SODIUM CHLORIDE 0.9% 250 ML IV ONE (09:27)
[2025-03-20 20:30] LABS: Appearance Urine Clear (Clear); Bacteria Urine Automated None Seen (None Seen); Glucose Urine UA Negative (Negative)
[2025-03-20] MEDS: MIRTAZAPINE TAB 15 MG TAB PO SCH (22:45)
--- NOTE | 2025-03-21 08:27 | Hospitalist Progress Note ---
Date of Service March 21, 2025 Assessment & Plan (1) Failure to thrive in adult: (2) Constipation: (3) UTI (urinary tract infection): (4) Protein-calorie malnutrition, severe: Plan 64yo F with PMHx for CVA in July 2024 with right arm paralysis and right leg paresis sequela, COPD, left-sided lung carcinoma (e.g. histiocytosis), depression, anxiety, hypertension, severe protein calorie malnutrition. Family reports she has had a progressive decline since her stroke and has been essentially bedbound with very limited oral intake. She presented with acute dehydration, SIVAKUMAR, generalized weakness, and possibly acute UTI. #Failure to thrive in adult #Depression, MDD - first episode #Severe protein calorie malnutrition #Dehydration - elevated BUN/Cr at 65/1.68 consistent with dehydration on admission. S/p 2 L IV fluid with improvement to 35/0.78 . Unclear precipitating event behind this failure to thrive, as she initially was doing well after her stroke for 6 months, then for the past 1 month has had a significant progressive decline. Most likely cause is major depression, but could also consider vascular dementia and other etiologies if no improvement with treatment of depression. Estimated ~34 lb weight loss since 03/2024. TSH, B12 wnl, Lyme negative RD consulted for nutritional assessment, appreciate recommendations/adjustments to plan Palliative/psych consulted while inpatient Started Remeron 7.5mg HS for mood/appetite Zoloft inc to 50mg from prior 25mg ~3 wks ago. Also noted not moving her bowels/issues with constipation at baseline and recent addition/increased percocet for generalized pain with baseline chlorthalidone/lasix use for HTN w/ poor PO intake also contributing to FTT/poor PO intake along with underlying MDD Bowel regimen provided as below, +BM/monitoring for issues Improved mood reported 03/19 but ongoing poor sleep --> REMERON INCREASED 15mg HS for 03/20 and appears improved and will continue higher dose. Further titration plans outpatient PCP Continue to hold diuretics, PO hydration/nutrition encouraged Labs ordered for today, not yet drawn - will follow up (declined for 03/20) PT/OT rec SNF -->CM following, awaiting auth for [facility]. EDWIN when received. #Constipation - as above suspected worsened constipation w/ poor PO intake and diuretic use at baseline.KUB w/ fecal retention/stool ball Heavy bowel regimen added along with enemas/suppository on 03/20 and moderate BM following. Continue miralax/colace/senna with continued pain medications. Monitor for any issues/further suppository if needed #Depression/anxiety - increased depression since stroke in July w/ loss of independence/disability and psych has been consulted as above and suspected MDD, first episode (does have of son ~10yrs ago, niece "murdered" 2-3 years ago that her/ took care of). Note prior rx ativan in the winter but no consistent use/not filled since that time. Zoloft/remeron adjustments as above and will need outpatient follow up. 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 No hx HF, no leg edema and remains off all anti-HTN agents Cortisol AM w/ AM labs when able to draw #Acute UTI - UA suggestive of infection. Provided with Ceftriaxone IV x 3 days. Urine cx mixed javier, repeat collection ordered to ensure resolved/no further treatment but has refused to provide sample but can obtain as able -- repeat UA last evening without bacteria (denies symptoms at present) but RBC/no blood and will check CK w/ AM labs. PO hydration encouraged #COPD | left-sided lung carcinoma Adult pulmonary Langerhans cell histiocytosis: Per pulm note "Suspect respiratory bronchiolitis versus Langerhans' cell histiocytosis X Treatment and smoking cessation" No acute exacerbation. Follows with Dr. Govea outpatient ?progression w/ weight loss Dispo: continued inpatient stay, PT/OT rec SNF. Auth pending for [facility] and CM following. Continue remeron 15mg HS, zoloft 50mg - outpt titration in follow up updated bedside 03/21 Admission and Anticipated Discharge Date Admission Date: March 15, 2025 Supervising Physician Co-Signing Physician Notes The patient was not seen by me. The chart was reviewed. Case discussed with CHRISTELLE Robledo. Agree with assessment and plan Subjective Evaluated this morning, better sleep last evening, but some issues at night. Discussed may take a little time but can consider increasing further pending status. Stable appetite since moving her bowels, PO hydration/nutrition encouraged. Discussed auth pending for [facility]. reports they heard they have a bed, but need insurance auth. CM following and will let us know when received. No fever/chills, chest pain, shortness of breath reported. Questions/concerns addressed at this time. Physical Exam Physical Exam: General: 64yo female laying in bed, no one in room at present, NAD HEENT: head atraumatic, normocephalic, mm slightly dry Resp: even/unlabored, slightly diminished in the bases but no wheezing/rales on RA CV: RRR, no significant m/r/g, no pitting edema GI: +BS, soft/no further distension, nontender no sherman MSK/Neuro: baseline R arm paralysis/contracture, R leg paresis from prior CVA but answering questions appropriately, following commands as able Psych: alert/oriented, improved but remains w/ flat affect, not thrilled about continued inpatient stay but cooperative/more pleasant today, not tearful, no SI/HI Results & Data Results & Data Vital Signs (Past 12 Hours) Vital Signs Temp Pulse Resp BP Pulse Ox O2 Del Method 03/21/25 08:03 36.7 C 79 16 115/65 93 Room Air 03/20/25 23:23 36.9 C 85 12 118/61 95 Room Air 03/20/25 21:00 Room Air Laboratory Results 03/20/25 Range/Units 20:00 Urine Color Yellow Urine Appearance Clear (Clear) Urine pH 5.5 (4.5-7.5) Ur Specific Taylor 1.021 (1.000-1.030) Urine Protein Trace H (Negative) Urine Glucose (UA) Negative (Negative) Urine Ketones Trace H (Negative) Urine Blood Negative (Negative) Urine Nitrite Negative (Negative) Urine Bilirubin Negative (Negative) Urine Urobilinogen Negative (Negative) Ur Leukocyte Esterase 1+ H (Negative) Urine WBC (Auto) 6-10 H (0-5) /hpf Urine RBC (Auto) 11-20 H (0-2) /hpf U Hyaline Cast (Auto) 3-5 H (0-2) /lpf U Epithel Cells (Auto) 3-5 H (0-2) /hpf Urine Bacteria (Auto) None Seen (None Seen) Urine Comment PG Care Time/CCT Total # of Minutes Spent Total Time Spent with Patient: Total time spent is greater than 50% in coordination of care (as documented) at patient's floor/unit and/or counseling patient: Coding Level of Care Code 60703 SUB INP/OBS CARE 3/50MIN Diagnoses Failure to thrive in adult R62.7 Constipation K59.00 UTI (urinary tract infection) N39.0 Protein-calorie malnutrition, severe E43
[2025-03-21] MEDS: DICLOFENAC SOD 1% GEL 100 GM TUBE EXT SCH (17:40)
--- NOTE | 2025-03-22 07:52 | Hospitalist Progress Note ---
Date of Service March 22, 2025 Assessment & Plan (1) Failure to thrive in adult: (2) Constipation: (3) UTI (urinary tract infection): (4) Protein-calorie malnutrition, severe: Plan 64yo F with PMHx for CVA in July 2024 with right arm paralysis and right leg paresis sequela, COPD, left-sided lung carcinoma (e.g. histiocytosis), depression, anxiety, hypertension, severe protein calorie malnutrition. Family reports she has had a progressive decline since her stroke and has been essentially bedbound with very limited oral intake. She presented with acute dehydration, SIVAKUMAR, generalized weakness, and possibly acute UTI. #Failure to thrive in adult #Depression, MDD - first episode #Severe protein calorie malnutrition #Dehydration - elevated BUN/Cr at 65/1.68 consistent with dehydration on admission. S/p 2 L IV fluid with improvement to 35/0.78 . Unclear precipitating event behind this failure to thrive, as she initially was doing well after her stroke for 6 months, then for the past 1 month has had a significant progressive decline. Most likely cause is major depression, but could also consider vascular dementia and other etiologies if no improvement with treatment of depression. Estimated ~34 lb weight loss since 03/2024. TSH, B12 wnl, Lyme negative RD consulted for nutritional assessment, appreciate recommendations/adjustments to plan Palliative/psych consulted while inpatient Started Remeron 7.5mg HS for mood/appetite Zoloft inc to 50mg from prior 25mg ~3 wks ago. Also noted not moving her bowels/issues with constipation at baseline and recent addition/increased percocet for generalized pain with baseline chlorthalidone/lasix use for HTN w/ poor PO intake also contributing to FTT/poor PO intake along with underlying MDD Bowel regimen provided as below, +BM/monitoring for issues Improved mood reported 03/19 but ongoing poor sleep --> REMERON INCREASED 15mg HS for 03/20 and appears improved and will continue higher dose. --> Further titration plans outpatient PCP Continue to hold diuretics, PO hydration/nutrition encouraged. BP stable 127/67 Labs ordered but patient declined, acceptable. Afebrile/improved eating. Still with poor sleep despite increase, discussed ativan rx prior and she reports "only medication she trusted"--> rx was 1mg BID but will start 0.5mg SL x 1 this morning while waiting to hear back from insurance auth. Consideration for BID prn in meantime while above taking time for effect Hopeful dc [facility] if received today, otherwise patient very adamant about going home today and may occur if not receiving bed. No inpatient psych/concerns by psych and continue meds as abve PT/OT rec SNF -->CM following, awaiting auth for [facility]. DC when received. #Constipation - as above suspected worsened constipation w/ poor PO intake and diuretic use at baseline.KUB w/ fecal retention/stool ball and heavy bowel regimen/suppository/enema provided Large BM following and rec to continue bowel regimen while on pain meds. Diuretics remain on hold/plan to stop #Depression/anxiety - increased depression since stroke in July w/ loss of independence/disability and psych has been consulted as above and suspected MDD, first episode (does have of son ~10yrs ago, niece "murdered" 2-3 years ago that her/ took care of). Note prior rx ativan in the winter but no consistent use/not filled since that time but DID report benefit as above and trial PO x 1, ongoing use pending response. ?catatonic type depression almost Zoloft/remeron adjustments as above and will need outpatient follow up. 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 No hx HF, no leg edema and remains off all anti-HTN agents Cortisol AM w/ AM labs when able to draw -- has DECLINED all further lab draws #Acute UTI - UA suggestive of infection. Provided with Ceftriaxone IV x 3 days. Urine cx mixed javier, repeat collection ordered to ensure resolved/no further treatment but has refused to provide sample but can obtain as able -- repeat UA wo bacteria, did note RBC/no blood, declined CK check/hydration encouraged #COPD | left-sided lung carcinoma Adult pulmonary Langerhans cell histiocytosis: Per pulm note "Suspect respiratory bronchiolitis versus Langerhans' cell histiocytosis X Treatment and smoking cessation" No acute exacerbation. Follows with Dr. Govea outpatient ?progression w/ weight loss - outpt f/u Dispo: continued inpatient stay hopefully SNF TODAY IF AUTH RECEIVED. Trial ativan x 1 while waiting and could consider prn at dc Plan for Remeron 15mg HS, zoloft 50mg at dc and STOP home diuretics given BP stable OFF and no edema/hypoxia/etc updated bedside 03/22 Admission and Anticipated Discharge Date Admission Date: March 15, 2025 Supervising Physician Co-Signing Physician Notes The patient was not seen by me. The chart was reviewed. Case discussed with CHRISTELLE Robledo. Agree with assessment and plan Subjective Eval this morning, sitting up at the side of the bed, in room. Reports poor sleep, depressed about continued inpatient stay. Support provided, encouraged hopefully able to hear back today and get her to rehab. She reports "if not, I'm not going to be staying." Discussed again prior ativan use rx in the winter with patient -- she reports that was one of the only medications that she trusted, was agreeable to small dose this morning for anxiety and can consider additional prn dose w/ evening remeron to help sleep if needed at dc. No fever/chills, chest pain, shortness of breath. No SI/HI. Physical Exam Physical Exam: General: 64yo female sitting up at the side of the bed today, in room, upset about continued inpatient stay but more talkative HEENT: head atraumatic, normocephalic, mm stable/slightly dry Resp: even/unlabored, slightly diminished in the bases but no wheezing/rales on RA CV: RRR, no significant m/r/g, no pitting edema GI: +BS, soft/no further distension, nontender no sherman MSK/Neuro: baseline R arm paralysis/contracture, R leg paresis from prior CVA but answering questions appropriately, following commands as able Psych: alert/oriented, improved but remains w/ flat affect, not thrilled about continued inpatient stay but cooperative/more pleasant today, not tearful, no SI/HI Results & Data Results & Data Vital Signs (Past 12 Hours) Vital Signs Temp Pulse Resp BP Pulse Ox O2 Del Method 03/22/25 07:06 36.6 C 78 16 127/67 95 Room Air 03/21/25 22:51 36.6 C 76 16 112/68 96 Room Air PG Care Time/CCT Total # of Minutes Spent Total Time Spent with Patient: Total time spent is greater than 50% in coordination of care (as documented) at patient's floor/unit and/or counseling patient: Coding Level of Care Code 86268 SUB INP/OBS CARE 2/35MIN Diagnoses Failure to thrive in adult R62.7 Constipation K59.00 UTI (urinary tract infection) N39.0 Protein-calorie malnutrition, severe E43
[2025-03-22] MEDS: LORazepam 0.5 MG TAB SL STA (09:37)
--- NOTE | 2025-03-23 07:54 | Hospitalist Progress Note ---
Date of Service March 23, 2025 Assessment & Plan (1) Failure to thrive in adult: (2) Constipation: (3) UTI (urinary tract infection): (4) Protein-calorie malnutrition, severe: Plan 64yo F with PMHx for CVA in July 2024 with right arm paralysis and right leg paresis sequela, COPD, left-sided lung carcinoma (e.g. histiocytosis), depression, anxiety, hypertension, severe protein calorie malnutrition. Family reports she has had a progressive decline since her stroke and has been essentially bedbound with very limited oral intake. She presented with acute dehydration, SIVAKUMAR, generalized weakness, and possibly acute UTI. #Failure to thrive in adult #Depression, MDD - first episode #Severe protein calorie malnutrition #Dehydration - elevated BUN/Cr at 65/1.68 consistent with dehydration on admission. S/p 2 L IV fluid with improvement to 35/0.78 . Unclear precipitating event behind this failure to thrive, as she initially was doing well after her stroke for 6 months, then for the past 1 month has had a significant progressive decline. Most likely cause is major depression, but could also consider vascular dementia and other etiologies if no improvement with treatment of depression. Estimated ~34 lb weight loss since 03/2024. TSH, B12 wnl, Lyme negative RD consulted for nutritional assessment, appreciate recommendations/adjustments to plan Also noted not moving her bowels/issues with constipation at baseline and recent addition/increased percocet for generalized pain with baseline chlorthalidone/lasix use for HTN w/ poor PO intake also contributing to FTT/poor PO intake along with underlying MDD Palliative/psych consulted while inpatient Started Remeron 7.5mg HS for mood/appetite Zoloft inc to 50mg from prior 25mg ~3 wks ago. Ativan 0.5mg BID prn - got dose yesterday morning and this morning w/ good results (use in July in the past- see prior notes). Can rx at dc Bowel regimen provided as below, +BM/monitoring for issues Improved mood reported 03/19 but ongoing poor sleep --> REMERON INCREASED 15mg HS for 03/20 and appears improved and will continue higher dose moving forward. Ongoing titration with PCP in follow up Diuretics held/plan to discontinue Continue bowel regimen, suppository if no BM in 2-3 days (had BM ~2 days ago= rec to get in next 24hr, is passing gas) PT/OT rec SNF--> CM following. [facility] if auth received today vs home with HH services if not wanting to stay/await insurance auth #Constipation - as above suspected worsened constipation w/ poor PO intake and diuretic use at baseline.KUB w/ fecal retention/stool ball and heavy bowel regimen/suppository/enema provided. Large BM 03/20, addiitonal on 03/21. Continues to pass gas, bowel regimen continued/encouraged and rec suppository/enema if not moving in 2-3days at baseline ( reports gives after 3 days, encouraged close monitoring) #Depression/anxiety - increased depression since stroke in July w/ loss of independence/disability and psych has been consulted as above and suspected MDD, first episode (does have of son ~10yrs ago, niece "murdered" 2-3 years ago that her/ took care of). Note prior rx ativan in the winter but no consistent use/not filled since that time but DID report benefit as above and trial PO x 1 --> continued BID prn given improvement/stable w/ use Zoloft/remeron adjustments as above and will need outpatient follow up. 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 No hx HF, no leg edema and remains OFF ALL anti-HTN agents Cortisol AM w/ AM labs when able to draw -- has DECLINED all further lab draws BP stable 118/68 and plan to dc diuretics at dc to prevent constipation from worsening dehydration w/ baseline PO intake #Acute UTI - UA suggestive of infection. Provided with Ceftriaxone IV x 3 days. Urine cx mixed javier, repeat collection ordered to ensure resolved/no further treatment but has refused to provide sample but can obtain as able -- repeat UA wo bacteria, did note RBC/no blood, declined CK check/hydration encouraged #COPD | left-sided lung carcinoma Adult pulmonary Langerhans cell histiocytosis: Per pulm note "Suspect respiratory bronchiolitis versus Langerhans' cell histiocytosis X Treatment and smoking cessation" No acute exacerbation. Follows with Dr. Govea outpatient ?progression w/ weight loss - outpt f/u Dispo: continued inpatient stay hopefully SNF TODAY IF AUTH RECEIVED. If not received and not agreeable to stay, CM can arrange for HH services given patient alert/oriented and without SI/HI at this time If agreeable to stay, hopeful dc [facility] when auth received updated at bedside 03/23 Admission and Anticipated Discharge Date Admission Date: March 15, 2025 Supervising Physician Co-Signing Physician Notes The patient was not seen by me. The chart was reviewed. Case discussed with CHRISTELLE Robledo. Agree with assessment and plan Subjective Patient eval around lunch. Reports adequate oral intake, passing gas, pain stable control. Got dose ativan w/ good results this morning and discussed available as needed twice daily. in room, waiting for insurance auth. Patient rporting wanting to go home today if not received. inquiring about steps/wondering if able to make patient stay - discussed given alert/oriented and not confused and no SI/HI patient able to make her own decisions at this time, but encouraged to continue discussions in event not getting insurance auth this afternoon to consider staying for SNF but otherwise can plan for home health services. He reports hearing [facility] has a bed - discussed not able to take without insurance auth and will have adult protective caseworker continue to check to see if auth received throughout the day but as per ~945am this morning was not received but will check shortly. Questions/concerns addressed at this time. Physical Exam Physical Exam: General: 64yo female laying in bed, NAD, in room HEENT: head atraumatic, normocephalic, mm stable/slightly dry Resp: even/unlabored, slightly diminished in the bases but no wheezing/rales on RA CV: RRR, no significant m/r/g, no pitting edema GI: +BS, soft/slight distension, nontender, no guarding/rebound no sherman MSK/Neuro: baseline R arm paralysis/contracture, R leg paresis from prior CVA but answering questions appropriately, following commands as able Psych: alert/oriented, improved but remains w/ flat affect, denies SI/HI, cooperative but wanting to go home Results & Data Results & Data Vital Signs (Past 12 Hours) Vital Signs Temp Pulse Resp BP Pulse Ox O2 Del Method 03/23/25 07:04 36.6 C 80 16 118/68 91 Room Air 03/22/25 22:48 36.7 C 93 H 16 123/64 90 Room Air 03/22/25 20:39 Room Air PG Care Time/CCT Total # of Minutes Spent Total Time Spent with Patient: Total time spent is greater than 50% in coordination of care (as documented) at patient's floor/unit and/or counseling patient: Coding Level of Care Code 32390 SUB INP/OBS CARE 2/35MIN Diagnoses Failure to thrive in adult R62.7 Constipation K59.00 UTI (urinary tract infection) N39.0 Protein-calorie malnutrition, severe E43
[2025-03-23] MEDS: LORazepam 0.5 MG TAB SL PRN (10:33)
--- NOTE | 2025-03-23 15:32 | Discharge Summary ---
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 histiocytosis), depression, anxiety, hypertension, severe protein calorie malnutrition. Family reports she has had a progressive decline since her stroke and has been essentially bedbound with very limited oral intake. She presented with acute dehydration, SIVAKUMAR, generalized weakness, and possibly acute UTI. #Failure to thrive in adult #Depression, MDD - first episode #Severe protein calorie malnutrition #Dehydration - elevated BUN/Cr at 65/1.68 consistent with dehydration on admission. S/p 2 L IV fluid with improvement to 35/0.78 . Unclear precipitating event behind this failure to thrive, as she initially was doing well after her stroke for 6 months, then for the past 1 month has had a significant progressive decline. Most likely cause is major depression, but could also consider vascular dementia and other etiologies if no improvement with treatment of depression. Estimated ~34 lb weight loss since 03/2024. TSH, B12 wnl, Lyme negative RD consulted for nutritional assessment, appreciate recommendations/adjustments to plan Also noted not moving her bowels/issues with constipation at baseline and recent addition/increased percocet for generalized pain with baseline chlorthalidone/lasix use for HTN w/ poor PO intake also contributing to FTT/poor PO intake along with underlying MDD Palliative/psych consulted while inpatient Started Remeron 7.5mg HS for mood/appetite Zoloft inc to 50mg from prior 25mg ~3 wks ago. Ativan 0.5mg BID prn - got dose yesterday morning and this morning w/ good results (use in July in the past- see prior notes). Can rx at dc Bowel regimen provided as below, +BM/monitoring for issues Improved mood reported 03/19 but ongoing poor sleep --> REMERON INCREASED 15mg HS for 03/20 and appears improved and will continue higher dose moving forward. Ongoing titration with PCP in follow up Diuretics held/plan to discontinue Continue bowel regimen, suppository if no BM in 2-3 days (had BM ~2 days ago --> rec to give in next 24hr if no BM - reports is passing gas/no abdominal pain on exam) PT/OT rec SNF--> CM following. [facility] if auth received today vs home with HH services if not wanting to stay/await insurance auth --> patient not wanting to wait. Encouraged to consider but does not want to stay inpatient any longer and req HH arranged. Remained alert/oriented, answering questions appropriately and not confused. No SI/HI and discussed w cannot hold against her wishes. If further/continued decline, return to ER discussed. #Constipation - as above suspected worsened constipation w/ poor PO intake and diuretic use at baseline.KUB w/ fecal retention/stool ball and heavy bowel regimen/suppository/enema provided. Large BM 03/20, additional on 03/21. Continues to pass gas, bowel regimen continued/encouraged and rec suppository/enema if not moving in 2-3days at baseline ( reports gives after 3 days, encouraged close monitoring in follow up/post-discharge) #Depression/anxiety - increased depression since stroke in July w/ loss of independence/disability and psych has been consulted as above and suspected MDD, first episode (does have of son ~10yrs ago, niece "murdered" 2-3 years ago that her/ took care of). Note prior rx ativan in the winter but no consistent use/not filled since that time but DID report benefit as above and trial PO x 1 --> continued BID prn given improvement/stable w/ use Zoloft/remeron adjustments as above and will need outpatient follow up. #Hypertension # Acute Hypotension hx HTN on lisinopril 20mg, lasix 20mg prn and chlorthalidone 12.5mg [employer] but presented with hypotension/soft BP and home meds on hold/provided IVF hydration x 3 days BP stable/improved but suspect should NOT be on any diuretics (lasix/chlorthalidone) with poor PO intake and SIVAKUMAR on admission (resolved with IVF) and monitoring off. No hx HF, no leg edema and remains OFF ALL anti-HTN agents Cortisol AM w/ AM labs when able to draw -- has DECLINED all further lab draws BP stable 118/68 and plan to dc diuretics at dc to prevent constipation from worsening dehydration w/ baseline PO intake #Acute UTI - UA suggestive of infection. Provided with Ceftriaxone IV x 3 days. Urine cx mixed javier, repeat collection ordered to ensure resolved/no further treatment but has refused to provide sample but can obtain as able -- repeat UA wo bacteria, did note RBC/no blood, declined CK check/hydration encouraged and no burning/frequency reported. #COPD | left-sided lung carcinoma Adult pulmonary Langerhans cell histiocytosis: Per pulm note "Suspect respiratory bronchiolitis versus Langerhans' cell histiocytosis X Treatment and smoking cessation" No acute exacerbation. Follows with Dr. Govea outpatient ?progression w/ weight loss - outpt f/u Dispo: continued inpatient stay hopefully SNF TODAY IF AUTH RECEIVED--> no auth received on check x 3 today. Per discussion w/ coordinator, could take up to 5 days per determination and patient not wanting/willing to stay inpatient at this time. As above, HH services arranged for next week. Updated/discussed plan of care with extensively and if patient with decline or issues post-dc to return to ER. Further discussions about assisted living vs other if needing additoinal help at home but again have arranged for HH services Notes For Next Care Provider Monitor bowels/consider relistor for opiate induced constipation given new med Have stopped diuretics given poor PO intake and BP and suspected making more dehydrated w/ constipation issues from opiates. BP 118/68 on check prior to dc, no sx/no leg edema or SOB reported Further titration to remeron/zoloft in follow up. Have given short rx ativan BID given patient reporting improvement in the past with such and have given rx for #14 tablets to us prn BID Medication Changes From Visit Zoloft increased to 50mg daily Remeron new - 15mg HS Ativan 0.5mg BID prn Stopped chlorthalidone, stopped furosemide Started Vitamin D once daily Bowel regimen - miralax/colace/senna, prn suppository if needed q2-3 days Admission HPI Per Admitting Provider 64 years old right-hand dominant female with PMH of FULL CODE @ home, severe protein calorie malnutrition with BMI 15.4 (height 160.2 cm; weight 39.5 kg), ongoing tobacco abuse with subsequent diagnosis of (a) COPD, not on home O2 or home steroids, (b) left-sided lung carcinoma (e.g., histiocytosis) under watchful waiting as per PULM Dr. Daly Seguraky, major depression on sertraline 25mg PO daily, anxiety disorder on lorazepam 1mg PO bid prn anxiety, HTN on lisinopril 20mg PO daily, chlorthalidone 12.5mg PO daily, and lasix 20mg PO daily prn, and non-hemorrhagic, ischemic CVA (07/29/2024) with neurologic sequelae consisting of right arm paralysis and right leg paresis, who complains that ever since her non-hemorrhagic, ischemic CVA (07/29/2024), that "food doesn't taste the same anymore" and "I'm weak. I don't feel like eating or drinking for the past 3 weeks. I don't feel hungry. If I take a few bites, I am full and don't want to eat or drink anymore. I am so weak that I cannot even sit up, stand up, or walk at home. I've lost a lot of weight, but I can't say how much." Patient denies antecedent/coincident fevers, chills, diaphoresis, cough, wheeze, sore throat, hemoptysis, chest pains, palpitations, pleurisy, nausea, vomiting, diarrhea, abdominal pain, pelvic pain, hematemesis, hematochezia, melena, hematuria, dysuria, frequency, urgency, headaches, dizziness, lightheadedness, visual changes, hearing changes, falls, syncope, trauma, travel history, sick contacts, or food/drug ingestions novel or new. All other review of systems are reported as negative by the patient on 03/15. In [facility] ER bed #C05, patient was afebrile @ 36.6 degrees Celsius, HR 84, RR 15, O2 sat 100% on 2 liters/minute O2 via nasal cannula, and BP 102/67 (03/15/2025, 5:24pm). Exam was noted for right arm paralysis and right leg paresis. Patient appeared run-down, worn-out, and listless. Cachexia and sarcopenia were noted with bitemporal atrophy and decreased finger manager fiber strength in left hand. Skin was dry with skin tenting, but no delay in capillary refill time > 2 seconds. Labs in [facility] ER bed #C05 included: WBC 15.91, N75 L16 M6 E2, Hb 11.9, MCV 98.0, MCHC 34.3, platelet 432 (03/15/2025, 11:38am). VBG 7.33, pCO2 49, pO2 < 20, HCO3 26, O2 sat < 60% (03/15/2025, 11:38am). Na 134, K 4.5, BUN 65, creatinine 1.68, GFR 33.3, glucose 130, Ca 10.5, albumin 4.1, total protein 7.6 (03/15/2025, 11:38am). Troponin-I #1 23.7 pg/mL (03/15/2025, 2:27pm). Troponin-I #2 23.3 pg/mL (03/15/2025, 11:38am). U/A: cloudy yellow, LE 3+, nitrite-, WBC > 50, RBC 0-2, epithelial cells 6-10, bacteria 1+ (03/15/2025). Urine culture (03/15/2025). Additional testing in [facility] ER bed #C05 included: Portable CXR (03/15/2025, 11:24am): No infiltrate, effusion, cardiomegaly, pulmonary vascular congestion, or pneumothorax (by my review). EKG (03/15/2025, 11:28am): NSR @ 96, MN 156, QTC 424, no acute ST depressions/elevations (by my review). Patient was subsequently admitted to the inpatient hospitalist service @ [facility] on 03/15/2025 with the following diagnoses: 1. Failure to thrive. 2. Acute dehydration with BUN:creatinine ratio > 20:1 (e.g., BUN 65, creatinine 1.68 on 03/15/2025, 11:38am). 3. Acute hyponatremia with admission Na 134 mmol/L (03/15/2025, 11:38am). 4. Acute UTI. 5. Acute type II NSTEMI with Troponin-I #1 23.7 pg/mL (03/15/2025, 2:27pm) and Troponin-I #2 23.3 pg/mL (03/15/2025, 11:38am). 6. Ongoing tobacco abuse with subsequent diagnosis of (a) COPD, not on home O2 or home steroids, (b) left-sided lung carcinoma (e.g., histiocytosis) under watchful waiting as per PULM Dr. Daly Govea. To address #1, patient awaits formal [facility] Service evaluation in the 03/16/2025 am. In the interim, patient has been started on a heart healthy diet. To address #2, patient received 1 liter of 0.9% NS @ 999 mL/hr (03/15/2025, 12:00pm), followed by 1 liter of 0.9% NS @ 80 mL/hr (03/15/2025, 3:54pm), based on a delivery rate of 2 mL of 0.9% NS per kg of body weight per hour, and a body weight of 39.5 kg. I will check BUN:creatinine ratio in the 03/16/2025 am. To address #3, patient received 1 liter of 0.9% NS @ 999 mL/hr (03/15/2025, 12:00pm), followed by 1 liter of 0.9% NS @ 80 mL/hr (03/15/2025, 3:54pm), based on a delivery rate of 2 mL of 0.9% NS per kg of body weight per hour, and a body weight of 39.5 kg. I will check Na level in the 03/16/2025 am. To address #4, patient was started on ceftriaxone 1g IV daily (day #1/3 on 03/15/2025, 6:45pm). I will check vitals, genito-urinary exam (no sherman catheter in [facility] ER bed #C05), WBC w/diff, and urine culture (03/15/2025) in the 03/16/2025 am. To address #5, patient was observed OFF telemetry as I surmise that demand ischemia in the setting of acute dehydration, due to possible acute UTI, is the culprit for the nominal troponin-I elevation(s). To address #6, patient received smoking cessation counselling 16 minutes in [facility] ER bed #C05. Patient agrees to quit smoking tobacco while in [facility]. Patient accepts offer of nicotine replacement utilizing nicotine patch, stating, "I can quit smoking myself." Admission Exam Per Admitting Provider General appearance: Run-down, worn-out, and listless. Cachexia and sarcopenia noted with bitemporal atrophy and decreased finger manager fiber strength in left hand. Comfortable, coherent, cooperative. Wide awake and alert. Not confused, lethargic, or obtunded. Speaks in complete, fluent, and articulate sentences without pause, interruption, cough, or wheeze. HEENT: Normocephalic; atraumatic. EOMI. PERRL No rhinorrhea. No pharyngeal discharge. Neck: Supple, no stridor, bruit, goiter, JVD, or HJR. Lymph: No lymphadenopathy. Chest: Symmetric rise and fall with respirations. Non-tender to palpation. Lungs: Clear to auscultation and percussion. No audible wheeze, pectoriloquy, increase in tactile fremitus, or flatness/dullness to percussion at the bases. Heart: RRR, S1S2, no S3 or S4. Grade II/ early systolic murmur @ LLSB without radiation to the carotids, axilla, or back, and which remains invariant in regards to the respiratory cycle. Abd: Soft, non-tender, non-distended. No rebound, guarding, Carey's sign, or organomegaly. Bowel sounds auscultated in all 4 quadrants. Ext: No clubbing, cyanosis, or edema. 2+ pedal pulses bilaterally. Skin: No decubitus ulcer, exanthem, or enanthem. Skin dry with skin tenting, but no delay in capillary refill time > 2 seconds. Neuro: Alert and oriented in regards to person, place, time, or situation. Right arm paralysis and right leg paresis. LUE/LLE, 5/5 motor strength, proximally and distally. Urology: No sherman catheter. No urethral discharge. Psych: No suicidal ideation. No homicidal ideation. Discharge Exam General: 64yo female laying in bed, NAD, in room HEENT: head atraumatic, normocephalic, mm stable/slightly dry Resp: even/unlabored, slightly diminished in the bases but no wheezing/rales on RA CV: RRR, no significant m/r/g, no pitting edema GI: +BS, soft/slight distension, nontender, no guarding/rebound no sherman MSK/Neuro: baseline R arm paralysis/contracture, R leg paresis from prior CVA but answering questions appropriately, following commands as able Psych: alert/oriented, improved but remains w/ flat affect, denies SI/HI, cooperative but wanting to go home Discharge Plan Discharge Items Patient Disposition: Home - Home Health Services Reason For Visit: FAILURE TO THRIVE Discharge Diagnosis: Depression, Failure to thrive, constipation, dehydration Condition on Discharge: Fair Goals: You have been hospitalized for an acute medical problem. During your stay at [facility], we have made an effort to correct the problem that brought you to the hospital while keeping you as comfortable as possible. Medic ations were used to bring your condition under control and your discharge instructions will include directions for any medications you should take after leaving the hospital. Please make sure you see your Primary Care Provider as part of your follow up plan. Activity: Resume your previous activity Activity Comment: increase with assistive device/walker/cane as tolerated Non-emergency contact: Primary Care Provider Call non-emergency contact if: you have any medication questions, your symptoms worsen, your pain is not controlled, your pain is concerning for you and you have a fever Follow-up/Referrals: Sonny Marin, [Primary Care Provider] - Diet: Regular and Heart Healthy Addtl Attending Provider Instructions: You have been hospitalized for "failure to thrive" and concerns for depression since your stroke contributing to poor oral intake and increased depression. Psychiatry was consulted and adjustments made to your medications as follows: * Remeron 15mg HS - helps with mood/sleep and increasing your appetite * Zoloft 50mg daily - helps with mood/depression * Ativan 0.5mg once to twice daily - can be used as needed for anxiety as well as sleep and is fast acting while the other medications can take a couple of weeks for full effect PLEASE continue a BOWEL REGIMEN to prevent constipation as likely worsened with recent pain medications. We recommend over the counter colace/miralax daily and dulcolax suppository if not moving bowels every 2-3 days to prevent worsening constipation which could cause your appetite to decrease as well and increase concerns for dehydration. Diuretics/blood pressure medications on HOLD for now, can resume if needed for edema/leg swelling or elevated blood pressure but suspect these have made dehydration worse. Vitamin D level slightly low-Oral replacement has been started/continued. Low vitamin D levels have been known to worsen depression and recommend you continue this at discharge once daily. Please follow up with primary care at discharge to monitor your status. Home health has been arranged and should see you this upcoming week. Please return to the ER with any increased depression, suicidal thoughts, decreased oral intake, fever/chills, or for any other symptoms concerning for you. It has been a pleasure being a part of the medical team providing for you while you have been in the hospital. Take care! Pending Studies at Discharge: No Stand-Alone Forms: My [facility] Photos I Like, Smoking Cessation Medications and DC Order Prescriptions: New sennosides [Senna Lax] 8.6 mg Tablet 8.6 mg PO HS Qty: 30 0RF polyethylene glycol 3350 [Miralax] 17 gram Powder In Packet 17 g PO DAILY Qty: 14 0RF docusate sodium 100 mg Capsule 100 mg PO BID Qty: 30 0RF mirtazapine 15 mg Tablet 15 mg PO HS Qty: 30 0RF sertraline 50 mg Tablet 50 mg PO DAILY Qty: 30 0RF cholecalciferol (vitamin D3) [Vitamin D3] 10 mcg (400 unit) Tablet 10 mcg PO QAM Qty: 30 0RF lorazepam 0.5 mg tablet 0.5 mg PO BID PRN (Reason: anxiety or insomnia) Qty: 14 0RF Continued albuterol sulfate 90 mcg/actuation HFA aerosol inhaler 2 puff INH QID PRN (Reason: shortness of breath or wheezing) Qty: 18 3RF atorvastatin 20 mg tablet 80 mg PO DAILY silver sulfadiazine 1 % cream 1 applic TOPICAL BID PRN (Reason: Other) oxycodone-acetaminophen 7.5-325 mg tablet 1 tab PO Q8H ezetimibe 10 mg tablet 10 mg PO DAILY multivitamin Tablet 1 tab PO DAILY aspirin 81 mg Tablet,Delayed Release (Dr/Ec) 81 mg PO DAILY Incruse Ellipta 62.5 mcg/actuation blister with device 1 inh inhalation DAILY PRN (Reason: Other) Changed lorazepam 1 mg tablet 0.5 mg PO BID PRN (Reason: Other) Qty: 0 0RF lisinopril 20 mg tablet 10 mg PO DAILY Qty: 30 0RF Held chlorthalidone 25 mg tablet 12.5 mg PO DAILY Hold Instructions: hold unless needed for BP/edema to prevent dehydration furosemide 20 mg tablet 20 mg PO DAILY PRN (Reason: Fluid Retention) Hold Instructions: hold unless needed for BP/edema to prevent dehydration Discontinued sertraline 25 mg tablet 25 mg PO DAILY Discharge Orders: Discharge Order (Routine); Ordered 03/23/25 Ordered By: Mirela Leger Admission Data Admit Date/Time: 03/15/25 14:07 Attending Provider: Ej Pink Admit Provider: Chris Parra Primary Care Provider: Sonny Marin Other Providers: Chris Parra; Elizabeth,Home Care Other Interventions: Discharge Summary Assessment (RN) Last Done: 03/23/25 15:32 Hospital Stay Data Consultations 03/15/25 13:36 ED Decision to Admit Stat 03/16/25 14:12 Consult Palliative Care Routine Diagnostic Imagining Performed Chest X-Ray 03/15/25 11:24 XR chest 1V portable CLINICAL HISTORY: hypotension COMPARISON STUDY: 05/14/2020 FINDINGS: Heart size and pulmonary vasculature are normal. No consolidation or pleural effusion. No pneumothorax. IMPRESSION: No acute findings. ACT 112: Negative or not required by law. Electronically signed by: Ricco Pierson M.D. 03/15/2025 11:38 AM KUB X-Ray 03/20/25 07:00 KUB HISTORY: Acute generalized abdominal pain with reported constipation eval constipation COMPARISON: PET/CT December 15, 2017 FINDINGS: Noncontrast bowel gas pattern. Moderate colonic fecal retention. Mild gaseous distention of the rectum and splenic flexure. No renal calculi. No ureteral calculi. No pneumoperitoneum or pneumatosis. Degenerative changes of the spine, pelvis and hips. Vascular calcification of the right hemipelvis. No fracture. IMPRESSION: 1. Nonobstructive bowel gas pattern. 2. Moderate colonic fecal retention. ACT 112: Negative or not required by law. The above report was generated using voice recognition software. It may contain grammatical, syntax or spelling errors. Electronically signed by: Rajeev Banks M.D. 03/20/2025 9:23 AM Pending Results Patient Have Any Pending Studies at Discharge: No Discharge Instructions Given to Patient (Per Discharging Provider) You have been hospitalized for "failure to thrive" and concerns for depression since your stroke contributing to poor oral intake and increased depression. Psychiatry was consulted and adjustments made to your medications as follows: * Remeron 15mg HS - helps with mood/sleep and increasing your appetite * Zoloft 50mg daily - helps with mood/depression * Ativan 0.5mg once to twice daily - can be used as needed for anxiety as well as sleep and is fast acting while the other medications can take a couple of weeks for full effect PLEASE continue a BOWEL REGIMEN to prevent constipation as likely worsened with recent pain medications. We recommend over the counter colace/miralax daily and dulcolax suppository if not moving bowels every 2-3 days to prevent worsening constipation which could cause your appetite to decrease as well and increase concerns for dehydration. Diuretics/blood pressure medications on HOLD for now, can resume if needed for edema/leg swelling or elevated blood pressure but suspect these have made dehydration worse. Vitamin D level slightly low-Oral replacement has been started/continued. Low vitamin D levels have been known to worsen depression and recommend you continue this at discharge once daily. Please follow up with primary care at discharge to monitor your status. Home health has been arranged and should see you this upcoming week. Please return to the ER with any increased depression, suicidal thoughts, decreased oral intake, fever/chills, or for any other symptoms concerning for you. It has been a pleasure being a part of the medical team providing for you while you have been in the hospital. Take care! Supervising Physician Co-Signing Physician Notes The patient was not seen by me. The chart was reviewed. Case discussed with CHRISTELLE Robledo. Agree with assessment and plan Total Time Total Time Spent Total Time Spent (In Minutes): 45 Coding Level of Care Code 83341 INP/OBS DISCH >30 MIN Diagnoses Failure to thrive in adult R62.7 Constipation K59.00 UTI (urinary tract infection) N39.0 Protein-calorie malnutrition, severe E43
[2025-03-24] MEDS ORDERED: UMECLIDINIUM BROMIDE 62.5MCG/BLISTER 7 PUFFS/INHALER INH SCH (09:00)
== END 2025-03-23 16:42 | disposition home health service (06) | DRG 640 ==
LOC: ED 10:48 → SUATTDRO 14:07 → 3E 14:07